=== PATIENT | female | born 2000 | race Caucasian/White ===

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

== ENCOUNTER 2021-02-11 17:07 | Emergency (ER) | payer SELFPAY ==
[~2021-02-11] VITALS: Ht 160 cm; Wt 56.0 kg
[~2021-02-11 17:07] MED LIST changes: -VALA1000 PO; +VALA10007 PO
--- NOTE | 2021-02-11 17:20 | ED General ---
General Chief Complaint: General Problems/Pain Stated Complaint: HGB LOW Nursing Triage Note: PT STATES HEMAGLOBIN 6.5 AT [facility], WAS SENT HERE FOR ANEMIA. Nursing Sepsis Screen: No Definite Risk Source of Information: Patient Exam Limitations: No Limitations History of Present Illness Date Seen by Provider: Feb 11, 2021 Time Seen by Provider: 17:18 Initial Comments To ER by private vehicle with reports of anemia. Patient has been feeling very fatigued and rundown for "a long time". She has a history of iron deficiency anemia and was formerly on iron infusions back in 2018. Hemoglobin as low as 4.4 at that time. She had a consult with hematology here during admission. She then had a rise in her hemoglobin up to about 15 and quit taking the iron infusions. She cannot take oral iron therapy because of the nausea that it causes she states. She saw [facility] about 3 weeks ago and had a fingerstick hemoglobin of 10 and a repeat today of 6.8. She does not have any periods secondary to Nexplanon. She states she really does not eat much of anything because of nausea which is almost constant for her. Timing/Duration: 1-2 Days Severity: Moderate Associated Systoms: Denies Symptoms Allergies and Home Medications Allergies Coded Allergies: No Known Drug Allergies (Unverified , 09/17/12) Home Medications Ferrous Sulfate 325 Mg Tablet, 1 TAB PO BID WITH MEALS Prescribed by: GENTRY PASTOR on 04/27/18 1013 Ondansetron 8 Mg Tab.rapdis, 1 TAB PO Q8H Prescribed by: GENTRY PASTOR on 04/27/18 1013 Patient Home Medication List Home Medication List Reviewed: Yes Review of Systems Review of Systems Constitutional: see HPI, malaise, weakness EENTM: see HPI Respiratory: no symptoms reported Cardiovascular: no symptoms reported Genitourinary: no symptoms reported Musculoskeletal: no symptoms reported Skin: no symptoms reported Psychiatric/Neurological: No Symptoms Reported Hematologic/Lymphatic: No Symptoms Reported Past Eoiwtnz-Xiiaps-Igrttx Hx Patient Social History 2nd Hand Smoke Exposure: Yes Recent Infectious Disease Expo: No Recent Hopitalizations: No Immunizations Up To Date Tetanus Booster (TDap): Less than 5yrs PED Vaccines UTD: Yes Date of Pneumonia Vaccine: Apr 25, 2001 Seasonal Allergies Seasonal Allergies: No Past Medical History Surgeries: Yes Ear Surgery Respiratory: No Cardiac: No Neurological: No 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 0.0oz. [id number]; 21.00 BMI Method:Stated General Appearance: No Apparent Distress, WD/WN, Other (Alert and oriented no distress. Heart rate 101, blood pressure 133/88.) Eyes: Bilateral Eye Normal Inspection, Bilateral Eye PERRL, Bilateral Eye EOMI HEENT: PERRL/EOMI, TMs Normal Respiratory: Normal Breath Sounds, No Accessory Muscle Use, No Respiratory Distress Cardiovascular: Regular Rate, Rhythm, Normal Peripheral Pulses Gastrointestinal: Normal Bowel Sounds, Non Tender, Soft Extremity: Normal Capillary Refill, Normal Inspection Neurologic/Psychiatric: Alert, Oriented x3 Skin: Normal Color, Warm/Dry Progress/Results/Core Measures Suspected Sepsis Recent Fever Within 48 Hours: No Infection Criteria Present: None New/Unexplained Altered Menta: No Sepsis Screen: No Definite Risk SIRS Temperature: Pulse: 101 Respiratory Rate: 18 Laboratory Tests 02/11/21 17:20: White Blood Count 7.8 Blood Pressure 136 /83 Mean: 100 Laboratory Tests 02/11/21 17:20: Creatinine 0.83, Platelet Count 331, Total Bilirubin 0.8 Results/Orders Lab Results Laboratory Tests Test 02/11/21 17:20 Range/Units White Blood Count 7.8 4.3-11.0 10^3/uL Red Blood Count 3.54 L 3.80-5.11 10^6/uL Hemoglobin 7.0 L 11.5-16.0 g/dL Hematocrit 27 L 35-52 % Mean Corpuscular Volume 75 L 80-99 fL Mean Corpuscular Hemoglobin 20 L 25-34 pg Mean Corpuscular Hemoglobin Concent 26 L 32-36 g/dL Red Cell Distribution Width 17.6 H 10.0-14.5 % Platelet Count 331 130-400 10^3/uL Mean Platelet Volume 9.5 9.0-12.2 fL Immature Granulocyte % (Auto) 0 % Neutrophils (%) (Auto) 42 42-75 % Lymphocytes (%) (Auto) 51 H 12-44 % Monocytes (%) (Auto) 7 0-12 % Eosinophils (%) (Auto) 0 0-10 % Basophils (%) (Auto) 1 0-10 % Neutrophils # (Auto) 3.3 1.8-7.8 10^3/uL Lymphocytes # (Auto) 4.0 1.0-4.0 10^3/uL Monocytes # (Auto) 0.5 0.0-1.0 10^3/uL Eosinophils # (Auto) 0.0 0.0-0.3 10^3/uL Basophils # (Auto) 0.1 0.0-0.1 10^3/uL Immature Granulocyte # (Auto) 0.0 0.0-0.1 10^3/uL Percent Immature Platelet Fraction 2.9 0.0-7.6 % Absolute Reticulocyte Count 66 24-90 10e9/uL Percent Reticulocyte Count 1.87 0.50-2.40 % Sodium Level 140 135-145 MMOL/L Potassium Level 4.1 3.6-5.0 MMOL/L Chloride Level 107 98-107 MMOL/L Carbon Dioxide Level 21 21-32 MMOL/L Anion Gap 12 5-14 MMOL/L Blood Urea Nitrogen 10 7-18 MG/DL Creatinine 0.83 0.60-1.30 MG/DL Estimat Glomerular Filtration Rate > 60 BUN/Creatinine Ratio 12 Glucose Level 99 70-105 MG/DL Calcium Level 9.1 8.5-10.1 MG/DL Corrected Calcium 8.8 8.5-10.1 MG/DL Total Bilirubin 0.8 0.1-1.0 MG/DL Aspartate Amino Transf (AST/SGOT) 13 5-34 U/L Alanine Aminotransferase (ALT/SGPT) 13 0-55 U/L Alkaline Phosphatase 50 40-136 U/L Total Protein 7.4 6.4-8.2 GM/DL Albumin 4.4 3.2-4.5 GM/DL My Orders Orders - MARISSA GRIGGS APRN Iron Tibc %Sat & Ferritin (02/11/21 17:15) Anemia Analyzer Hem Tests (02/11/21 17:15) Cbc With Automated Diff (02/11/21 17:15) Comprehensive Metabolic Panel (02/11/21 17:15) Ed Iv/Invasive Line Start (02/11/21 17:15) Red Cells Leukocytes Reduced (02/11/21 17:15) Anemia Analyzer Pathology (02/11/21 17:15) Cbc And Manual Diff (02/11/21 17:15) Immature Platelet Fraction (02/11/21 17:15) Reticulocyte Count (02/11/21 17:15) Type And Screen (02/11/21 17:15) Vital Signs/I&O 02/11/21 17:13 Temp 36.9 Pulse 101 Resp 18 B/P (MAP) 136/83 (100) Pulse Ox 100 O2 Delivery Room Air Capillary Refill : Less Than 3 Seconds Blood Pressure Mean: 100 Departure Communication (Admissions) [id number] spoke with Dr. Mortensen, we will give her 1 unit of packed red cells here then discharged. She will have the [facility] call her later this week for an appointment time next week to set up further evaluation and likely iron infusions. Impression Primary Impression: Microcytic hypochromic anemia Disposition: HOME, SELF-CARE Condition: Improved Departure-Patient Inst. Decision time for Depature: 17:57 Referrals: [facility] (PCP) Primary Care Physician ACE KERR APRN (Family) Primary Care Physician Patient Instructions: Anemia, Possibly From Low Iron, Adult ED, Good Food Sources of Iron Add. Discharge Instructions: 1. [facility] will call you later this week for an appointment time next week to recheck hemoglobin and this will likely result in them scheduling you for iron infusions. All discharge instructions reviewed with patient and/or family. Voiced un derstanding. Copy Copies To 1: MARA LOVE PETER J APRN Feb 11, 2021 17:20
[2021-02-11 17:28] LABS: ABSOLUTE RETIC # 66 10e9/uL (24-90); BASOPHILS # (AUTO) 0.1 10^3/uL (0.0-0.1); BASOPHILS % (AUTO) 1 % (0-10); EOSINOPHILS % (AUTO) 0 % (0-10); HEMATOCRIT 27 % (35-52); LYMPHOCYTES % (AUTO) 51 % (12-44); MEAN CORPUSCULAR HEMOGLOBIN 20 pg (25-34); MEAN CORPUSCULAR HGB CONC 26 g/dL (32-36); MEAN CORPUSCULAR VOLUME 75 fL (80-99); MEAN PLATELET VOLUME 9.5 fL (9.0-12.2); MONOCYTES # (AUTO) 0.5 10^3/uL (0.0-1.0); MONOCYTES % (AUTO) 7 % (0-12); NEUTROPHILS # (AUTO) 3.3 10^3/uL (1.8-7.8); NEUTROPHILS % (AUTO) 42 % (42-75); PLATELET COUNT 331 10^3/uL (130-400); RETICULOCYTE % 1.87 % (0.50-2.40); WHITE BLOOD COUNT 7.8 10^3/uL (4.3-11.0)
[2021-02-11 17:43] LABS: ALBUMIN 4.4 GM/DL (3.2-4.5); CHLORIDE 107 MMOL/L (98-107); POTASSIUM 4.1 MMOL/L (3.6-5.0); SODIUM 140 MMOL/L (135-145)
[2021-02-11 17:44] LABS: CALCIUM 9.1 MG/DL (8.5-10.1)
[2021-02-11 17:45] LABS: GLUCOSE 99 MG/DL (70-105)
[2021-02-11 17:46] LABS: TOTAL PROTEIN 7.4 GM/DL (6.4-8.2)
[2021-02-11 17:47] LABS: BILIRUBIN,TOTAL 0.8 MG/DL (0.1-1.0); CARBON DIOXIDE 21 MMOL/L (21-32)
[2021-02-11 17:49] LABS: ALKALINE PHOSPHATASE 50 U/L (40-136); CREATININE SERUM 0.83 MG/DL (0.60-1.30); GFR ESTIMATED > 60
[2021-02-11 17:50] LABS: BUN/CREATININE RATIO 12
[2021-02-11 17:52] LABS: ALANINE AMINOTRANSFERASE 13 U/L (0-55)
[2021-02-11] MEDS ORDERED: NS (IVPB) 250 ML IV ONE (18:00)
[2021-02-11 18:11] LABS: EOSINOPHILS % (MANUAL) 1 %; HYPOCHROMASIA MARKED; LYMPHOCYTES % (MANUAL) 38 %; MONOCYTES % (MANUAL) 9 %; NEUTROPHILS % (MANUAL) 52 %
[2021-02-11 18:12] LABS: ANISOCYTOSIS SLIGHT
[2021-02-11 18:27] VITALS: BP 115/62
[2021-02-11 18:42] VITALS: BP 113/56
[2021-02-11 19:55] VITALS: BP 112/69
== END 2021-02-11 20:00 | disposition home or self-care (01) ==
LOC: EDUNIT# 17:07 → ER 17:09
DX: D50.8 Other iron deficiency anemias (principal); Z77.22 Contact with and (suspected) exposure to environmental tobacco smoke (acute) (chronic)
CPT/HCPCS: 36430; 80053; 82728; 83540; 83550; 85007; 85027; 85045; 85055; 86850; 86900; 86901; 86920; 99285; P9016; 36415

== ENCOUNTER 2021-04-01 05:31 | Outpatient (RCR) | payer OTHER ==
[~2021-04-01] VITALS: Ht 160 cm; Wt 57.2 kg
[~2021-04-01 05:31] MED LIST changes: +ACET325T49 PO
== END 2021-04-01 08:48 | disposition home or self-care (01) ==
LOC: PREOP 05:31
PROVIDERS: ATTEND Surgery
DX: Z01.812 Encounter for preprocedural laboratory examination (principal); D64.9 Anemia, unspecified; K92.1 Melena; Z20.822 Contact with and (suspected) exposure to COVID-19
CPT/HCPCS: 87635

== ENCOUNTER 2021-04-02 13:02 | Day surgery (SDC) | payer OTHER ==
[~2021-04-02] VITALS: Ht 160 cm; Wt 57.2 kg
[2021-04-02] VITALS (10 sets, daily range): BP systolic 103–132; BP diastolic 59–91
[2021-04-02] MEDS ORDERED: LACTATED RINGERS 1,000 ML IV ONE (13:06)
[2021-04-02] MEDS ORDERED: LACTATED RINGERS 1,000 ML IV STA (13:17)
[2021-04-02] MEDS ORDERED: HURRICAINE EXT TUBE (BENZOCAINE) XX PRN (13:30)
--- NOTE | 2021-04-02 15:20 | Progress Note-Pre Operative ---
Pre-Operative Progress Note H&P Reviewed The H&P was reviewed, patient examined and no changes noted. Time Seen by Provider: 15:19 Date H&P Reviewed: Apr 02, 2021 Time H&P Reviewed: 15:20 Pre-Operative Diagnosis: Melena, epigastric pain, anemia YOVANI NORTON DO Apr 02, 2021 15:20
[2021-04-02] MEDS ORDERED: MIDAZOLAM 2 MG/2 ML (VERSED) VIAL ONE (16:42)
[2021-04-02] MEDS ORDERED: PROPOFOL INJECTION 50 ML IV ONE (16:42)
[2021-04-02] MEDS ORDERED: proPOfol 200 MG/20 ML (DIPRIVAN) VIAL IV ONE (16:56)
--- NOTE | 2021-04-02 17:26 | Progress Note-Post Operative ---
Post-Operative Progess Note Surgeon (s)/Radio Frequency Technician (s) Surgeon YOVANI NORTON DO Radio Frequency Technician: none Pre-Operative Diagnosis Melena, epigastric pain, anemia Post-Operative Diagnosis Gastritis Hiatal hernia Diverticula rectal polyp colitis int hemorrhoids gluteal mass Procedure & Operative Findings Date of Procedure 04/02/21 Procedure Performed/Findings PROCEDURE NOTE: After informed consent was obtained, the patient was brought to the endoscopy suite, placed in bed in left lateral decubitus position. She was administered IV sedation by the SALES AND TRAINING SPECIALIST who then monitored her vitals the entire time, heart rate, blood pressure and pulse ox, started with the EGD, placed the scope down the mouth through the esophagus into the stomach, noticed very mild Gastritis and took a picture of the antrum, pushed into the duodenum. Duodenum looked normal. Pulled back and did a biopsy of the antrum and then retroflexed the scope. She had a small hiatal hernia, pulled the scope into the GE junction, did a biopsy here and then pushed the scope back into the stomach and suctioned all the air out, then pulled the scope up the esophagus and out the mouth. Switched camera, switched gloves, went down below, started the colonoscopy. Pushed all the way to the cecum about 150 cm in, took a picture of the appendiceal orifice and noted the ileo-cecal valve. Able to get into the terminal ileum and then did a cold biopsy here. Then slowly withdrew the scope insufflating to look circumferentially at the gresham looking at the cecum, up the ascending colon. In the ascending colon I saw a diverticula and took a picture of it. Then continued up the ascending colon to the hepatic flexure, down the transverse colon, to the splenic flexure, into the descending colon down into the sigmoid and finally into the rectum. In the sigmoid/rectal area it looked a little red (most likely prep artifact) and did a biopsy here. Then noted a polyp in the rectal vault and did a cold biopsy of this as well as took a picture. As I withdrew the scope I saw some minimal internal hemorrhoids and took a picture. Then removed the scope and on the gluteal cheek noticed a mass/nevus and took a picture of this. The patient tolerated the procedure. She was recovered in endoscopy suite. Anesthesia Type IV sedation by SALES AND TRAINING SPECIALIST Estimated Blood Loss Estimated blood loss (mL): scant Specimens/Packing Specimens Removed antral bx GE jxn bx TI bx rectal bx Rectal polyp YOVANI NORTON DO Apr 02, 2021 17:26
--- NOTE | 2021-04-02 17:28 | Endoscopy Discharge Instruct ---
Endo Procedure/Findings Findings 1.: Gastritis 2.: Hiatal Hernia 3.: Polyp, Diverticulosis 4.: Internal Hemorrhoids Discharge Instructions - Activity: You might feel a little sleepy until tomorrow. This is due to the medicine you received to relax you. Until tomorrow, you should: NOT drive a car, operate machinery or power tools. NOT drink any alcoholic beverages. NOT make any important decisions or sign importortant papers. Do not return to work until tomorrow, unless otherwise instructed. Resume previous activities tomorrow. Diet: Start by taking liquids. If you tolerate liquids, advance to solid food. 1.: Colonscopy in 5 years 2.: EGD in 3 years Notify Physician - If you experience excessive bleeding, unusual abdominal pain, fever, or chest pain, contact your doctor immediately. YOVANI NORTON DO Apr 02, 2021 17:28
--- NOTE | 2021-04-02 20:01 | Anesthesia-General Post-Op ---
MAC Patient Condition Mental Status/LOC: Same as Preop Cardiovascular: Satisfactory Nausea/Vomiting: Absent Respiratory: Satisfactory Pain: Controlled Complications: Absent Post Op Complications Complications None Follow Up Care/Instructions Patient Instructions None needed. Anesthesiology Discharge Order Discharge Order Patient is doing well, no complaints, stable vital signs, no apparent adverse anesthesia problems. No complications reported per nursing. JONES JONES CRNA Apr 02, 2021 20:01
== END 2021-04-02 18:20 | disposition home or self-care (01) ==
LOC: ENDO 13:02
PROVIDERS: ATTEND Surgery
DX: K29.50 Unspecified chronic gastritis without bleeding (principal); K62.1 Rectal polyp; B96.81 Helicobacter pylori [H. pylori] as the cause of diseases classified elsewhere; K64.8 Other hemorrhoids; K57.30 Diverticulosis of large intestine without perforation or abscess without bleeding; K52.9 Noninfective gastroenteritis and colitis, unspecified; K44.9 Diaphragmatic hernia without obstruction or gangrene; R63.4 Abnormal weight loss; D50.9 Iron deficiency anemia, unspecified; I10 Essential (primary) hypertension; Z79.899 Other long term (current) drug therapy; Z20.822 Contact with and (suspected) exposure to COVID-19; Z83.3 Family history of diabetes mellitus
CPT/HCPCS: 84703

== ENCOUNTER → 2021-04-02 | Outpatient (CLI) | payer OTHER ==
--- NOTE | 2021-04-02 08:33 | Diagnostic Imaging Report ---
PROCEDURE: US Gallbladder. TECHNIQUE: Multiple real-time grayscale images were obtained over the right upper quadrant in various projections. INDICATION: Epigastric pain Liver, gallbladder and bile ducts are normal. The pancreas and right kidney are normal. No abnormality of the aorta or IVC is seen. There is no ascites. IMPRESSION: No abnormality is seen. Dictated by: Dictated on workstation # [id number]
== END ==
LOC: RAD 06:48
PROVIDERS: ATTEND Surgery
DX: R10.13 Epigastric pain (principal)
CPT/HCPCS: 76705

== ENCOUNTER → 2021-04-17 | Outpatient (CLI) | payer OTHER ==
[~2021-04-17] MED LIST changes: +CATHETER FLUSH 10 ML SYR IV PRN
--- NOTE | 2021-04-17 15:08 | Diagnostic Imaging Report ---
INDICATION: Epigastric pain. EXAMINATION: Patient was administered 4.5 mCi technetium 99m Choletec intravenously and imaging over the abdomen was performed. At 75 minutes, patient ingested 8 ounces of Ensure and gallbladder ejection fraction was calculated. There is homogeneous uptake of activity by the liver. There is prompt excretion of activity into the common duct with passage into the small bowel. There was filling of the gallbladder. Gallbladder ejection fraction is slightly low at 28%. Normal values are 35% or greater. IMPRESSION: 1. Patent cystic duct and common bile duct. 2. Slightly low gallbladder ejection fraction of 28%. Dictated by: Dictated on workstation # [id number]
== END ==
LOC: CARD 08:00
PROVIDERS: ATTEND Surgery
DX: R10.13 Epigastric pain (principal)
CPT/HCPCS: 78227; A9537

== ENCOUNTER 2021-04-21 09:33 | Outpatient (RCR) | payer OTHER ==
[2021-03-10 14:28] LABS: EOSINOPHILS # (AUTO) 0.1 10^3/uL (0.0-0.3); EOSINOPHILS % (AUTO) 1 % (0-10); HEMOGLOBIN 7.6 g/dL (11.5-16.0)
[2021-03-10 14:31] LABS: ABSOLUTE RETIC # 58 10e9/uL (24-90); BASOPHILS # (AUTO) 0.1 10^3/uL (0.0-0.1); BASOPHILS % (AUTO) 1 % (0-10); HEMATOCRIT 29 % (35-52); LYMPHOCYTES % (AUTO) 22 % (12-44); MEAN CORPUSCULAR HEMOGLOBIN 20 pg (25-34); MEAN CORPUSCULAR HGB CONC 26 g/dL (32-36); MEAN CORPUSCULAR VOLUME 77 fL (80-99); MEAN PLATELET VOLUME 9.8 fL (9.0-12.2); MONOCYTES # (AUTO) 0.7 10^3/uL (0.0-1.0); MONOCYTES % (AUTO) 7 % (0-12); NEUTROPHILS # (AUTO) 6.3 10^3/uL (1.8-7.8); NEUTROPHILS % (AUTO) 69 % (42-75); PLATELET COUNT 539 10^3/uL (130-400); RETICULOCYTE % 1.53 % (0.50-2.40); WHITE BLOOD COUNT 9.2 10^3/uL (4.3-11.0)
[2021-03-10 14:55] LABS: ALANINE AMINOTRANSFERASE 10 U/L (0-55); ALBUMIN 4.2 GM/DL (3.2-4.5); ALKALINE PHOSPHATASE 44 U/L (40-136); BILIRUBIN,TOTAL 0.5 MG/DL (0.1-1.0); BUN/CREATININE RATIO 12; CALCIUM 8.6 MG/DL (8.5-10.1); CARBON DIOXIDE 27 MMOL/L (21-32); CHLORIDE 105 MMOL/L (98-107); CREATININE SERUM 0.77 MG/DL (0.60-1.30); GFR ESTIMATED > 60; GLUCOSE 89 MG/DL (70-105); POTASSIUM 3.9 MMOL/L (3.6-5.0); SODIUM 138 MMOL/L (135-145); TOTAL PROTEIN 6.7 GM/DL (6.4-8.2)
[~2021-04-21 09:33] MED LIST changes: -CATHETER FLUSH 10 ML SYR IV PRN; +FERRIC CARBOXYMALTOSE (CANCER) 750 MG in NS (IVPB) CANCER CENTER 250 ML IV SCH
[2021-04-21 09:45] LABS: BASOPHILS % (AUTO) 1 % (0-10); EOSINOPHILS % (AUTO) 1 % (0-10); HEMATOCRIT 43 % (35-52); HEMOGLOBIN 12.9 g/dL (11.5-16.0); LYMPHOCYTES # (AUTO) 1.7 10^3/uL (1.0-4.0); LYMPHOCYTES % (AUTO) 36 % (12-44); MEAN CORPUSCULAR HEMOGLOBIN 26 pg (25-34); MEAN CORPUSCULAR HGB CONC 30 g/dL (32-36); MEAN CORPUSCULAR VOLUME 88 fL (80-99); MEAN PLATELET VOLUME 9.3 fL (9.0-12.2); MONOCYTES # (AUTO) 0.3 10^3/uL (0.0-1.0); MONOCYTES % (AUTO) 6 % (0-12); NEUTROPHILS # (AUTO) 2.7 10^3/uL (1.8-7.8); NEUTROPHILS % (AUTO) 57 % (42-75); PLATELET COUNT 205 10^3/uL (130-400); WHITE BLOOD COUNT 4.8 10^3/uL (4.3-11.0)
[2021-05-14] MEDS ORDERED: ACHD5005 PO (09:26)
== END 2021-05-16 10:21 | disposition home or self-care (01) ==
LOC: ONC 09:33
PROVIDERS: ATTEND Internal Medicine Hematology & Oncology
DX: D50.9 Iron deficiency anemia, unspecified (principal)
CPT/HCPCS: 80053; 82607; 82746; 83010; 83520; 83615; 85025; 85045; 86880; G0463; 82728; 83540; 83550; 88305; 96365; 99213; 99214

== ENCOUNTER 2021-05-07 06:05 | Outpatient (CLI) | payer OTHER ==
[~2021-05-07] VITALS: Ht 160 cm; Wt 57.2 kg
[~2021-05-07 06:05] MED LIST changes: -FERRIC CARBOXYMALTOSE (CANCER) 750 MG in NS (IVPB) CANCER CENTER 250 ML IV SCH
== END 2021-05-07 09:05 | disposition home or self-care (01) ==
LOC: PREOP 06:05
PROVIDERS: ATTEND Surgery
DX: Z01.818 Encounter for other preprocedural examination (principal)

== ENCOUNTER 2021-05-14 06:57 | Day surgery (SDC) | payer OTHER ==
[~2021-05-14] VITALS: Ht 160 cm; Wt 57.2 kg
[2021-05-14] VITALS (12 sets, daily range): BP systolic 106–139; BP diastolic 67–84
[2021-05-14] MEDS ORDERED: LIDOCAINE/EPI 1%-1:100,000 (XYLOCAINE) 20ML ONE (07:21)
[2021-05-14 07:42] LABS: HEMATOCRIT 41 % (35-52); HEMOGLOBIN 12.7 g/dL (11.5-16.0); MEAN CORPUSCULAR HEMOGLOBIN 28 pg (25-34); MEAN CORPUSCULAR HGB CONC 31 g/dL (32-36); MEAN CORPUSCULAR VOLUME 91 fL (80-99); MEAN PLATELET VOLUME 9.1 fL (9.0-12.2); PLATELET COUNT 228 10^3/uL (130-400); WHITE BLOOD COUNT 5.4 10^3/uL (4.3-11.0)
[2021-05-14] MEDS ORDERED: INDOCYANINE GREEN 25 MG (ICG) VIAL ONE (07:43)
[2021-05-14] MEDS ORDERED: LIDOCAINE PF 2% 5 ML (XYLOCAINE) VIAL ONE (07:44)
[2021-05-14] MEDS ORDERED: fentaNYL INJ 100 MCG/2 ML AMP ONE (07:44)
[2021-05-14] MEDS ORDERED: MIDAZOLAM 2 MG/2 ML (VERSED) VIAL ONE (07:44)
[2021-05-14] MEDS ORDERED: proPOfol 200 MG/20 ML (DIPRIVAN) VIAL IV ONE (07:44)
[2021-05-14] MEDS ORDERED: NEOSTIGMINE 3 MG/3 ML VIAL ONE (07:44)
[2021-05-14] MEDS ORDERED: ONDANSETRON 4 MG/2 ML (SDV) Z0FRAN ONE (07:44)
[2021-05-14] MEDS ORDERED: GLYCOPYRROLATE 0.2 MG/ML (ROBINUL) 2 ML VIAL ONE (07:44)
[2021-05-14] MEDS ORDERED: ROCURONIUM 10 MG/ML 5 ML SYRINGE IV ONE (07:44)
[2021-05-14] MEDS ORDERED: INDOCYANINE GREEN 25 MG (ICG) VIAL IV ONE (07:45)
[2021-05-14] MEDS ORDERED: LACTATED RINGERS 1,000 ML IV PRN (07:45)
[2021-05-14] MEDS ORDERED: ceFAZolin 2 GM IV Premixed 50 ML IV ONE (07:45)
--- NOTE | 2021-05-14 08:04 | Progress Note-Pre Operative ---
Pre-Operative Progress Note H&P Reviewed The H&P was reviewed, patient examined and no changes noted. Time Seen by Provider: 07:59 Date H&P Reviewed: May 14, 2021 Time H&P Reviewed: 07:59 Pre-Operative Diagnosis: Biliary Dyskinesia YOVANI NORTON DO May 14, 2021 08:04
[2021-05-14] MEDS ORDERED: HYDROmorphone 2 MG/ML VIAL (DILAUDID) ONE (08:50)
[2021-05-14] MEDS ORDERED: SEVOFLURANE (ULTANE) 15 ML INHAL SOLN ONE (09:04)
--- NOTE | 2021-05-14 09:25 | Progress Note-Post Operative ---
Post-Operative Progess Note Surgeon (s)/Housekeeping Department Worker (s) Surgeon YOVANI NORTON DO Housekeeping Department Worker: JOSEF Fernandez Pre-Operative Diagnosis Biliary Dyskinesia Post-Operative Diagnosis same Procedure & Operative Findings Date of Procedure 05/14/21 Procedure Performed/Findings PROCEDURE: Laparoscopic cholecystectomy with Robotic assistance and ICG firefly intraoperative cholangiogram. COMPLICATIONS: None. PROCEDURE: The patient was taken to the operating suite and was prepped and draped in sterile fashion. A surgical pause was performed. Just inferior to the umbilicus, a 12 mm incision was made. Dissection was taken down to the fascia, which was then scored and grasped with a Jones and the abdomen was then entered. A 0 Vicryl suture was placed in a [id number] fashion and a Correa trocar was placed and secured. Pneumoperitoneum was achieved. An 8mm trochar place about 8cm directly lateral to the umbilicus in the right upper quadrant and then another 8cm to the left and one final one in the left upper outer quadrant. The Robot was then docked to the ports and all instruments placed. The gallbladder was then grasped and elevated; noted to have some adhesions, which usually indicate previous gallbladder attacks. These were taken down with the bovie catuery. The cystic duct, and cystic artery were then dissected out. ICG Firefly cholangiogram was used to visualize the cystic duct going right into the common duct. Gallbladder, liver, ducts and stomach were green; indicating no blockage. Clip was placed on the distal portion of the cystic duct and then two more placed proximally. Next two clips were placed on the cystic artery and the duct was then transected; as well as, the cystic artery was finally transected. Hook cautery was used to dissect the gallbladder from the gallbladder fossa achieving hemostasis. The gallbladder was placed in an Endobag and removed through the 12 mm trocar site. The abdomen was then reinspected. Copious amounts of irrigation were used to irrigate the abdomen and there were no signs of active bleeding. Hemostasis had been achieved. The 12 mm fascial defect was then closed with 0 Vicryl suture that had been placed in a [id number] fashion. The abdomen was then desufflated, the trocars were removed. The abdomen was then washed and dried. The skin was then closed using 4-0 Monocryl in a subcuticular fashion. The abdomen was washed and dried and Skin Affix was place over incisions. Patient tolerated the procedure well without any complications and was taken to the recovery room in stable condition. Anesthesia Type GET Estimated Blood Loss Estimated blood loss (mL): scant Specimens/Packing Specimens Removed GB and contents YOVANI NORTON DO May 14, 2021 09:25
[2021-05-14] MEDS ORDERED: ACHD5005 PO (09:26)
--- NOTE | 2021-05-14 09:28 | Discharge Inst-Surgical ---
Discharge Inst-Surgical Depart Medication/Instructions New, Converted or Re-Newed RX: Transmitted to Pharmacy Patient Instructions Follow up Appt: Make appointment for 1 week. [phone] Instructions: No lifting greater than 20 pounds. No strenuous activity. May shower in 24 hours, no tub bath or soaking. Use incentive spirometer at home as directed. No Smoking Skin/Wound Care: May remove bandages in am. You need to leave the Dermabond on incision it will fall off on it's own. Symptoms to Report: Appetite Changes, Extremity Discoloration, Numbness/Tingling, Swelling Increased, Bleeding Excessive, Eyesight Changes, Pain Increased, Urine Color Change, Constipation(Persistent), Fever over 101 degree F, Pain/Pressure in chest, Urinating Difficulty, Cough Up/Vomit Blood, Heart Beat Irreg/Pounding, Pain/Pressure in jaw, Cramps in feet or legs, Lightheadedness, Pain/Pressure in shoulder, Diarrhea(Persistent), Memory Changes Suddenly, Questions/Concerns, Weight gain consecutive days, Dizziness/Fainting, Nausea/Vomiting, Shortness of Breath, Weight gain over 2 pounds If questions or concerns contact your physician Or seek help at emergency department. Activity Activity as Tolerated: Yes Activity Instructions: Avoid Stress to Incision Driving Instructions: No Driving/Refer to Dr. Mendoza Discharge Diet: Avoid Fatty Foods, Low Fat/Low Cholesterol If Any Problems/Questions/Issu: Contact Your Physician, Go to Emergency Room Skin/Wound Care Infection Signs and Symptoms: Increased Redness, Foul Odor of Wound, Increased Drainage, Skin Itchy or Has a Rash, Increased Swelling, Temperature Above 101 F Wound Care Comment: Heating pad to shoulder or neck for pain tonight Bathing Instructions: Shower Stitches/Eugenia/Dermabond Dis: Dermabond Ice Pack: Ice On and Off Site YOVANI NORTON DO May 14, 2021 09:28
[2021-05-14] MEDS ORDERED: morphine INJ 10 MG/ML 1ML (SYR OR VIAL) IVP ONE (09:30)
[2021-05-14] MEDS ORDERED: HYDROmorphone 2 MG/ML VIAL (DILAUDID) IV ONE (09:30)
[2021-05-14] MEDS ORDERED: ONDANSETRON 4 MG/2 ML (SDV) Z0FRAN IVP PRN (09:30)
[2021-05-14] MEDS ORDERED: HYDROcodone/APAP 5 MG/325 MG (LORTAB) TAB PO ONE (10:45)
[2021-05-14] MEDS ORDERED: HYDROcodone/APAP 5 MG/325 MG (LORTAB) TAB ONE (10:50)
--- NOTE | 2021-05-14 14:34 | Anesthesia-General Post-Op ---
General Patient Condition Mental Status/LOC: Same as Preop Cardiovascular: Satisfactory Nausea/Vomiting: Absent Respiratory: Satisfactory Pain: Controlled Complications: Absent Post Op Complications Complications None Follow Up Care/Instructions Patient Instructions None needed. Anesthesia/Patient Condition Patient Condition Patient was seen this morning after the procedure and she was doing well, no complaints, stable vital signs, no apparent adverse anesthesia problems. DANN ROSSI DO May 14, 2021 14:34
== END 2021-05-14 12:05 | disposition home or self-care (01) ==
LOC: SDC 06:57 → EEVIPCON 08:00 → SDC 12:05
PROVIDERS: ATTEND Surgery
DX: K81.1 Chronic cholecystitis (principal); K82.8 Other specified diseases of gallbladder; I10 Essential (primary) hypertension; A04.8 Other specified bacterial intestinal infections; D50.9 Iron deficiency anemia, unspecified; Z79.899 Other long term (current) drug therapy
CPT/HCPCS: 36415; 84703; 85027; 87081; 88304

== ENCOUNTER → 2021-08-11 | Outpatient (CLI) | payer OTHER ==
[~2021-08-11] MED LIST changes: +ACHD5005 PO
[2021-08-11 10:59] LABS: BASOPHILS % (AUTO) 0 % (0-10); EOSINOPHILS % (AUTO) 1 % (0-10); HEMATOCRIT 47 % (35-52); HEMOGLOBIN 15.3 g/dL (11.5-16.0); LYMPHOCYTES # (AUTO) 1.8 10^3/uL (1.0-4.0); LYMPHOCYTES % (AUTO) 27 % (12-44); MEAN CORPUSCULAR HEMOGLOBIN 31 pg (25-34); MEAN CORPUSCULAR HGB CONC 33 g/dL (32-36); MEAN CORPUSCULAR VOLUME 96 fL (80-99); MONOCYTES # (AUTO) 0.3 10^3/uL (0.0-1.0); MONOCYTES % (AUTO) 5 % (0-12); NEUTROPHILS # (AUTO) 4.5 10^3/uL (1.8-7.8); NEUTROPHILS % (AUTO) 67 % (42-75); PLATELET COUNT 264 10^3/uL (130-400); WHITE BLOOD COUNT 6.7 10^3/uL (4.3-11.0)
== END ==
LOC: ONC 10:46
PROVIDERS: ATTEND Internal Medicine Hematology & Oncology
DX: D50.9 Iron deficiency anemia, unspecified (principal)
CPT/HCPCS: 82728; 83540; 83550; 85025

== ENCOUNTER → 2021-08-15 | Outpatient (CLI) | payer SELFPAY | LOC: ONC 11:01 | PROVIDERS: ATTEND Internal Medicine Hematology & Oncology | DX: D50.9 Iron deficiency anemia, unspecified (principal); I10 Essential (primary) hypertension | CPT/HCPCS: 99213 ==

== ENCOUNTER 2022-10-28 14:01 | Emergency (ER) | payer SELFPAY ==
[~2022-10-28] VITALS: Ht 157.5 cm; Wt 58.0 kg
--- NOTE | 2022-10-28 15:05 | ED Abdominal Pain ---
General Chief Complaint: OB < 20 WEEKS Stated Complaint: VAGINAL BLEEDING | 6 WEEKS Nursing Triage Note: PT AMB TO ED BY POV WITH C/O VAGINAL BLEEDING BEGINNING THIS MORNING. PT IS 6 WEEKS . LMP Sep. DENIES CRAMPING. PT'S FIRST . Source of Information: Patient Exam Limitations: No Limitations History of Present Illness Date Seen by Provider: Oct 28, 2022 Time Seen by Provider: 14:58 Initial Comments 21-year-old female presents with vaginal bleeding. States she is 6 weeks , last menstrual cycle was September 17. States she has normal menstrual cycles. Patient reports there was a moderate amount of blood, denies clots. Denies abdominal pain. Denies discharge. Denies fever/chills. Patient reports she has a history of anemia and occasionally has to get blood and iron trans fusions. States it has been a while since she had to have a transfusion. Patient currently only takes a . Allergies and Home Medications Allergies Coded Allergies: No Known Drug Allergies (Unverified , 09/17/12) Patient Home Medication List Home Medication List Reviewed: Yes Hydrocodone Bit/Acetaminophen (HYDROcodone/APAP 5 MG/325 MG TAB) 1 Tab Tab, 1 TAB PO Q8H PRN for PAIN-MODERATE (5-7) Prescribed by: YOVANI NORTON on 05/14/21 0965 Review of Systems Review of Systems Constitutional: no symptoms reported; No chills, No fever Respiratory: No Symptoms Reported Cardiovascular: No Symptoms Reported Gastrointestinal: Denies Abdominal Pain Genitourinary: Other (vaginal bleeding) Past Cuocsyk-Dxqvkz-Bwlddq Hx Patient Social History Tobacco Use?: No Use of E-Cig and/or Vaping dev: Yes E-Cig or Vaping type used: Nicotine Use of E-Cig and/or Vaping Bunny: Current Everyday User Substance use?: Yes Substance type: Marijuana Substance frequency: Daily Alcohol Use?: No Pt feels they are or have been: No Immunizations Up To Date Tetanus Booster (TDap): Less than 5yrs PED Vaccines UTD: Yes Influenza Vaccine Up-to-Date: No; Not Current Seasonal Allergies Seasonal Allergies: Yes Past Medical History Surgery/Hospitalization HX: ANEMIA SEMAJ Surgeries: Yes Ear Surgery Respiratory: No Currently Using CPAP: No Currently Using BIPAP: No Cardiac: No Neurological: No Last Menstrual Period: Sep 17, 2022 [employer]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 Genitourinary: No Gastrointestinal: No Hiatal Hernia Musculoskeletal: No Endocrine: No HEENT: No Cancer: No Psychosocial: No Integumentary: No Blood Disorders: Yes (History of severe anemia requiring transfusion) Adverse Reaction/Blood Tranf: No Family Medical History DAD HAS COPD Iron deficiency anemia Respiratory disorder 19 FATHER, Onset:40's - 50 No Pertinent Family Hx Physical Exam Vital Signs Vital Signs - First Documented 10/28/22 14:13 Temp 36.9 Pulse 100 Resp 16 B/P (MAP) 109/75 (86) Pulse Ox 98 O2 Delivery Room Air Capillary Refill : Less Than 3 Seconds Height/Weight/BMI Height: 5'3.00" Weight: 135lbs. 0.0oz. [id number]; 23.00 BMI Method:Stated General Appearance: WD/WN, no apparent distress Neck: supple, normal inspection Respiratory: lungs clear, normal breath sounds, no respiratory distress, no accessory muscle use Cardiovascular: regular rate, rhythm, no edema, no gallop, no JVD, no murmur Gastrointestinal: normal bowel sounds, non tender, soft, no organomegaly, no pulsatile mass Extremities: normal range of motion, normal inspection Pelvic: normal external exam, vaginal bleeding, other (closed os) Neurologic/Psychiatric: alert, normal mood/affect, oriented x 3 Skin: normal color, warm/dry Progress/Results/Core Measures Results/Orders Lab Results Laboratory Tests Test 10/28/22 14:50 10/28/22 15:06 Range/Units Urine Color YELLOW Urine Clarity CLEAR Urine pH 5.5 5-9 Urine Specific [place] >=1.030 1.016-1.022 Urine Protein 2+ H NEGATIVE Urine Glucose (UA) NEGATIVE NEGATIVE Urine Ketones TRACE H NEGATIVE Urine Nitrite NEGATIVE NEGATIVE Urine Bilirubin NEGATIVE NEGATIVE Urine Urobilinogen 1.0 < = 1.0 MG/DL Urine Leukocyte Esterase NEGATIVE NEGATIVE Urine RBC (Auto) 3+ H NEGATIVE Urine RBC TNTC H /HPF Urine WBC 2-5 /HPF Urine Squamous Epithelial Cells 5-10 /HPF Urine Crystals PRESENT H /LPF Urine Amorphous Sediment FEW KEO URATES H /LPF Urine Bacteria FEW H /HPF Urine Casts NONE /LPF Urine Mucus MODERATE H /LPF Urine Culture Indicated YES White Blood Count 9.6 4.3-11.0 10^3/uL Red Blood Count 4.68 3.80-5.11 10^6/uL Hemoglobin 14.7 11.5-16.0 g/dL Hematocrit 43 35-52 % Mean Corpuscular Volume 92 80-99 fL Mean Corpuscular Hemoglobin 31 25-34 pg Mean Corpuscular Hemoglobin Concent 34 32-36 g/dL Red Cell Distribution Width 12.1 10.0-14.5 % Platelet Count 263 130-400 10^3/uL Mean Platelet Volume 9.1 9.0-12.2 fL Immature Granulocyte % (Auto) 0 % Neutrophils (%) (Auto) 70 42-75 % Lymphocytes (%) (Auto) 24 12-44 % Monocytes (%) (Auto) 5 0-12 % Eosinophils (%) (Auto) 0 0-10 % Basophils (%) (Auto) 0 0-10 % Neutrophils # (Auto) 6.7 1.8-7.8 10^3/uL Lymphocytes # (Auto) 2.3 1.0-4.0 10^3/uL Monocytes # (Auto) 0.5 0.0-1.0 10^3/uL Eosinophils # (Auto) 0.0 0.0-0.3 10^3/uL Basophils # (Auto) 0.0 0.0-0.1 10^3/uL Immature Granulocyte # (Auto) 0.0 0.0-0.1 10^3/uL Sodium Level 136 135-145 MMOL/L Potassium Level 3.7 3.6-5.0 MMOL/L Chloride Level 108 H 98-107 MMOL/L Carbon Dioxide Level 22 21-32 MMOL/L Anion Gap 6 5-14 MMOL/L Blood Urea Nitrogen 8 7-18 MG/DL Creatinine 0.73 0.60-1.30 MG/DL Estimat Glomerular Filtration Rate 120 BUN/Creatinine Ratio 11 Glucose Level 94 70-105 MG/DL Calcium Level 8.8 8.5-10.1 MG/DL Corrected Calcium 8.7 8.5-10.1 MG/DL Total Bilirubin 1.2 H 0.1-1.0 MG/DL Aspartate Amino Transf (AST/SGOT) 14 5-34 U/L Alanine Aminotransferase (ALT/SGPT) 15 0-55 U/L Alkaline Phosphatase 41 40-136 U/L Total Protein 6.9 6.4-8.2 GM/DL Albumin 4.1 3.2-4.5 GM/DL Human Chorionic Gonadotropin, Quant 65056 H <5 MIU/ML My Orders Orders - RAMAKRISHNA ARIZA APRN Cbc With Automated Diff (10/28/22 14:57) Hcg,Quantitative (10/28/22 14:57) Ed Iv/Invasive Line Start (10/28/22 14:57) Comprehensive Metabolic Panel (10/28/22 14:57) Urinalysis (10/28/22 14:57) Us Ob<14 Wks Sngle W/Transvag (10/28/22 14:59) Urine Culture (10/28/22 14:50) Rho(D) Immune Globulin (Rhophylac) (10/28/22 17:00) Vital Signs/I&O 10/28/22 14:13 Temp 36.9 Pulse 100 Resp 16 B/P (MAP) 109/75 (86) Pulse Ox 98 O2 Delivery Room Air Blood Pressure Mean: 86 Progress Progress Note #1: Time: 15:00 Progress Note Patient seen and evaluated. Concern for threatened miscarriage or ectopic . CBC, CMP, UA, hCG ordered. Patient is blood type A-. Progress Note #2: Time: 16:46 Progress Note Pelvic exam performed. 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 Did not appreciate an open os. Blood noted in vaginal canal. Progress Note #3: Time: 16:55 Progress Note Discussed OB recommendations with patient. Patient instructed to be on bedrest for the next few days until she sees OB. Instructed to not have sexual intercourse, do not insert anything to the vagina. Patient instructed to call OB in the morning to get an appointment for tomorrow or Wednesday. RhoGAM ordered for patient due to type A- blood type. Diagnostic Imaging Diagonstic Imaging: Ultrasound Plain Films/CT/US/NM/MRI: other (OB <14 weeks) Comments Date of Exam:10/28/22 US OB<14 WKS SNGLE W/TRANSVAG INDICATION: Vaginal bleeding Transabdominal and transvaginal ultrasonography are performed. Intrauterine gestational sac is present with normal morphology. There is pole present with crown-rump length measuring 0.3 cm. Embryonic cardiac activity is present with a rate of 79 bpm. There is also an approximately 2.8 x 1.2 x 1.5 cm heterogeneous hypoechoic region to the right of midline in the uterus possibly representing hematoma. Right ovary is not well visualized. Left ovary is prominent and contains an approximately 2.1 x 2.3 x 1.8 cm hypoechoic structure possibly related to corpus luteum. This does have peripheral vascularity. No definite free fluid is seen. IMPRESSION: Intrauterine gestation with estimated age of 6 weeks. Sonographic EDC is 06/24/2023. There is a questionable meseret-gestational hematoma with complex structure in the left ovary having a nonspecific appearance. This could represent corpus luteum although clinical correlation and short-term ultrasound followup would be useful to document resolution and normal progression of . Dictated by: Dictated on workstation # [id number] Dict: 10/28/22 1601 Trans: 10/28/22 1630 CV [id number] Interpreted by: CARLA LR MD Electronically signed by: CARLA LR MD 10/28/22 1630 Departure Communication (Admissions) Time/Spoke to Consulting Phy: 16:53 Dr. Nixon Impression Primary Impression: Threatened in first trimester Disposition: 01 HOME, SELF-CARE Condition: Stable Departure-Patient Inst. Decision time for Depature: 17:00 Referrals: [facility] (PCP/Family) Primary Care Physician Patient Instructions: Threatened Miscarriage (DC) Add. Discharge Instructions: Discussed OB recommendations with patient. Instructed to be on bedrest for the next few days until she sees OB. Instructed to call OB first thing in the morning to get an appointment tomorrow or Wednesday. Instructed to have pelvic rest, no sex, nothing inserted into the vagina. Patient informed that she would get RhoGAM here while in the ER before leaving. All discharge instructions reviewed with patient and/or family. Voiced understanding. Work/School Note: Work Release Form Date Seen in the Emergency Department: Oct 28, 2022 Return to Work: Nov 04, 2022 Restrictions: Need Release from Doctor Other Restrictions Listed Below: May return to work after cleared by physician. Restrictions: No work until cleared by physician. RAMAKRISHNA ARIZA APRN Oct 28, 2022 15:05
[2022-10-28 15:09] LABS: CLARITY,URINE CLEAR; COLOR,URINE YELLOW; GLUCOSE, URINE (UA) NEGATIVE (NEGATIVE); KETONES,URINE TRACE (NEGATIVE); LEUKOCYTE ESTERASE ,URINE NEGATIVE (NEGATIVE); NITRITE,URINE NEGATIVE (NEGATIVE); PH,URINE 5.5 (5-9); PROTEIN,URINE 2+ (NEGATIVE)
[2022-10-28 15:14] LABS: BASOPHILS % (AUTO) 0 % (0-10); EOSINOPHILS % (AUTO) 0 % (0-10); HEMATOCRIT 43 % (35-52); HEMOGLOBIN 14.7 g/dL (11.5-16.0); LYMPHOCYTES # (AUTO) 2.3 10^3/uL (1.0-4.0); LYMPHOCYTES % (AUTO) 24 % (12-44); MEAN CORPUSCULAR HEMOGLOBIN 31 pg (25-34); MEAN CORPUSCULAR HGB CONC 34 g/dL (32-36); MEAN CORPUSCULAR VOLUME 92 fL (80-99); MEAN PLATELET VOLUME 9.1 fL (9.0-12.2); MONOCYTES # (AUTO) 0.5 10^3/uL (0.0-1.0); MONOCYTES % (AUTO) 5 % (0-12); NEUTROPHILS # (AUTO) 6.7 10^3/uL (1.8-7.8); NEUTROPHILS % (AUTO) 70 % (42-75); PLATELET COUNT 263 10^3/uL (130-400); WHITE BLOOD COUNT 9.6 10^3/uL (4.3-11.0)
[2022-10-28 15:24] LABS: ALBUMIN 4.1 GM/DL (3.2-4.5); POTASSIUM 3.7 MMOL/L (3.6-5.0)
[2022-10-28 15:26] LABS: CALCIUM 8.8 MG/DL (8.5-10.1)
[2022-10-28 15:26] LABS: BACTERIA,URINE FEW /HPF; BILIRUBIN,URINE NEGATIVE (NEGATIVE); RBC,URINE TNTC /HPF
[2022-10-28 15:27] LABS: AMORPHOUS SEDIMENT,UR FEW AMOR URATES /LPF
[2022-10-28 15:27] LABS: TOTAL PROTEIN 6.9 GM/DL (6.4-8.2)
[2022-10-28 15:29] LABS: BILIRUBIN,TOTAL 1.2 MG/DL (0.1-1.0)
[2022-10-28 15:30] LABS: CREATININE SERUM 0.73 MG/DL (0.60-1.30)
--- NOTE | 2022-10-28 16:07 | Diagnostic Imaging Report ---
INDICATION: Vaginal bleeding Transabdominal and transvaginal ultrasonography are performed. Intrauterine gestational sac is present with normal morphology. There is pole present with crown-rump length measuring 0.3 cm. Embryonic cardiac activity is present with a rate of 79 bpm. There is also an approximately 2.8 x 1.2 x 1.5 cm heterogeneous hypoechoic region to the right of midline in the uterus possibly representing hematoma. Right ovary is not well visualized. Left ovary is prominent and contains an approximately 2.1 x 2.3 x 1.8 cm hypoechoic structure possibly related to corpus luteum. This does have peripheral vascularity. No definite free fluid is seen. IMPRESSION: Intrauterine gestation with estimated age of 6 weeks. Sonographic EDC is 06/24/2023. There is a questionable meseret-gestational hematoma with complex structure in the left ovary having a nonspecific appearance. This could represent corpus luteum although clinical correlation and short-term ultrasound followup would be useful to document resolution and normal progression of . Dictated by: Dictated on workstation # [id number]
[2022-10-28] MEDS ORDERED: RHO(D) immune globulin 1,500 UNIT/2 ML (Rhogam/Rhophylac) IM/IV ONE ×2 (17:00→17:30)
[2022-10-28 18:18] VITALS: BP 123/79
== END 2022-10-28 18:18 | disposition home or self-care (01) ==
LOC: EDUNIT# 14:01 → ER 14:03
DX: O20.0 Threatened abortion (principal); O99.331 Smoking (tobacco) complicating pregnancy, first trimester; F17.290 Nicotine dependence, other tobacco product, uncomplicated; Z28.310 Unvaccinated for COVID-19; Z3A.01 Less than 8 weeks gestation of pregnancy
CPT/HCPCS: 36415; 76801; 76817; 80053; 81000; 84702; 85025; 87088; 96372

== ENCOUNTER 2022-10-29 14:05 | Emergency (ER) | payer MEDICAID | END 2022-10-29 14:30 | disposition left against medical advice (07) | LOC: EDUNIT# 14:05 → ER 14:06 | DX: O03.9 Complete or unspecified spontaneous abortion without complication (principal) ==

== ENCOUNTER 2022-12-10 05:34 | Day surgery (SDC) | payer MEDICAID ==
[2022-12-10] VITALS (8 sets, daily range): BP systolic 95–127; BP diastolic 54–79
[~2022-12-10] VITALS: Ht 157.5 cm; Wt 58.0 kg
[2022-12-10] MEDS ORDERED: fentaNYL INJ 100 MCG/2 ML AMP IVP ONE ×2 (06:30→11:15)
[2022-12-10] MEDS ORDERED: NS IV 500 ML 500 ML IV ONE (06:30)
--- NOTE | 2022-12-10 06:42 | ED GU-Female ---
General Chief Complaint: OB < 20 WEEKS Stated Complaint: 12 WKS PREG,MISCARRIAGE Nursing Triage Note: TO ED VIA POV AND AMBULATORY TO ROOM 5 WITH C/O 12 WEEKS , BLEEDING AND CRAMPING STARTED AT 0000. PT SAW DR. GONSALES ON Wednesday12/07/22 AND WAS SCHEDULED FOR UPCOMING D&C. Source: patient, old records Exam Limitations: no limitations History of Present Illness Date Seen by Provider: Dec 10, 2022 Time Seen by Provider: 06:05 Initial Comments This 22-year-old young lady presents to the emergency room with probable miscarriage. LMP was September 17, 2022. She has had bleeding throughout much of this . She began bleeding consistent with miscarriage about 3 days ago. Last night the bleeding became heavy with intense cramping. Shortly after being roomed in the emergency room, she went to the restroom and passed a saclike clump of tissue presumed to be products of conception. Patient reports bleeding has been heavy and she is feeling lightheaded and shaky. She has also had some chills in the past few days without fever. Dr. Gonsales has been managing her obstetrical care and performed a vaginal ultrasound yesterday reportedly demonstrating no viable . A D&C is to be scheduled. Patient is Rh- and received RhoGAM on October 28. Vital signs are unremarkable at this time. Allergies and Home Medications Allergies Coded Allergies: No Known Drug Allergies (Unverified , 09/17/12) Patient Home Medication List Home Medication List Reviewed: Yes Hydrocodone Bit/Acetaminophen (HYDROcodone/APAP 5 MG/325 MG TAB) 1 Tab Tab, 1 TAB PO Q8H PRN for PAIN-MODERATE (5-7) Prescribed by: YOVANI NORTON on 05/14/21 0927 Ibuprofen (Ibuprofen) 600 Mg Tablet, 600 MG PO Q6H Prescribed by: REGINA PALMER on 12/10/22 0951 Review of Systems Review of Systems Constitutional: see HPI EENTM: no symptoms reported Respiratory: no symptoms reported Cardiovascular: no symptoms reported Gastrointestinal: no symptoms reported Genitourinary: see HPI : Yes LMP: Sep 17, 2022 Musculoskeletal: no symptoms reported Skin: no symptoms reported Psychiatric/Neurological: No Symptoms Reported Endocrine: No Symptoms Reported Hematologic/Lymphatic: No Symptoms Reported Past Erggbtl-Bnmpku-Ozdazl Hx Patient Social History Tobacco Use?: Yes Smoking Status: Current Everyday Smoker Use of E-Cig and/or Vaping dev: Yes E-Cig or Vaping type used: Nicotine Substance use?: Yes Substance type: Marijuana Alcohol Use?: No Immunizations Up To Date Tetanus Booster (TDap): Less than 5yrs PED Vaccines UTD: Yes Influenza Vaccine Up-to-Date: No; Not Current Seasonal Allergies Seasonal Allergies: Yes Past Medical History Surgery/Hospitalization HX: ANEMIA SEMAJ Surgeries: Yes Ear Surgery, Gallbladder Respiratory: No Currently Using CPAP: No Currently Using BIPAP: No Cardiac: No 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 Genitourinary: No Gastrointestinal: Yes Hiatal Hernia Musculoskeletal: No Endocrine: No HEENT: No Cancer: No Psychosocial: No Integumentary: No Blood Disorders: Yes (History of severe anemia requiring transfusion) Adverse Reaction/Blood Tranf: No Yes Family Medical History DAD HAS COPD Iron deficiency anemia Respiratory disorder 19 FATHER, Onset:40's - 50 No Pertinent Family Hx Physical Exam Vital Signs Vital Signs - First Documented 12/10/22 06:00 Pulse 78 Resp 22 B/P (MAP) 141/92 (108) Pulse Ox 100 O2 Delivery Room Air Capillary Refill : Less Than 3 Seconds Height, Weight, BMI Height: 5'3.00" Weight: 135lbs. 0.0oz. [id number]; 23.00 BMI Method:Stated General Appearance: WD/WN, mild distress, thin HEENT: normal ENT inspection Neck: normal inspection Cardiovascular: regular rate, rhythm, no edema, no murmur Respiratory: lungs clear, normal breath sounds, no respiratory distress Gastrointestinal: normal bowel sounds, soft, tenderness (Suprapubic) Extremities: normal inspection, no pedal edema Neurologic/Psychiatric: rn ent II-XII nml as tested, no motor/sensory deficits, alert, normal mood/affect, oriented x 3 Skin: normal color, warm/dry Progress/Results/Core Measures Suspected Sepsis SIRS Temperature: Pulse: 78 Respiratory Rate: 22 Laboratory Tests 12/10/22 06:41: White Blood Count 10.0 Blood Pressure 141 /92 Mean: 108 Laboratory Tests 12/10/22 06:41: Creatinine 0.70, Platelet Count 233 Results/Orders Lab Results Laboratory Tests Test 12/10/22 06:12 12/10/22 06:41 Range/Units Urine Color RED H Urine Clarity SL CLOUDY Urine pH 5.5 5-9 Urine Specific [place] <=1.005 1.016-1.022 Urine Protein TRACE H NEGATIVE Urine Glucose (UA) NEGATIVE NEGATIVE Urine Ketones NEGATIVE NEGATIVE Urine Nitrite NEGATIVE NEGATIVE Urine Bilirubin NEGATIVE NEGATIVE Urine Urobilinogen 0.2 < = 1.0 MG/DL Urine Leukocyte Esterase TRACE H NEGATIVE Urine RBC (Auto) 3+ H NEGATIVE Urine RBC 50-100 H /HPF Urine WBC RARE /HPF Urine Squamous Epithelial Cells 0-2 /HPF Urine Crystals NONE /LPF Urine Bacteria TRACE /HPF Urine Casts NONE /LPF Urine Mucus NEGATIVE /LPF Urine Culture Indicated NO White Blood Count 10.0 4.3-11.0 10^3/uL Red Blood Count 4.70 3.80-5.11 10^6/uL Hemoglobin 14.8 11.5-16.0 g/dL Hematocrit 44 35-52 % Mean Corpuscular Volume 94 80-99 fL Mean Corpuscular Hemoglobin 32 25-34 pg Mean Corpuscular Hemoglobin Concent 33 32-36 g/dL Red Cell Distribution Width 12.1 10.0-14.5 % Platelet Count 233 130-400 10^3/uL Mean Platelet Volume 9.0 9.0-12.2 fL Immature Granulocyte % (Auto) 0 % Neutrophils (%) (Auto) 76 H 42-75 % Lymphocytes (%) (Auto) 17 12-44 % Monocytes (%) (Auto) 6 0-12 % Eosinophils (%) (Auto) 1 0-10 % Basophils (%) (Auto) 1 0-10 % Neutrophils # (Auto) 7.5 1.8-7.8 10^3/uL Lymphocytes # (Auto) 1.7 1.0-4.0 10^3/uL Monocytes # (Auto) 0.6 0.0-1.0 10^3/uL Eosinophils # (Auto) 0.1 0.0-0.3 10^3/uL Basophils # (Auto) 0.1 0.0-0.1 10^3/uL Immature Granulocyte # (Auto) 0.0 0.0-0.1 10^3/uL Sodium Level 139 135-145 MMOL/L Potassium Level 4.2 3.6-5.0 MMOL/L Chloride Level 109 H 98-107 MMOL/L Carbon Dioxide Level 22 21-32 MMOL/L Anion Gap 8 5-14 MMOL/L Blood Urea Nitrogen 6 L 7-18 MG/DL Creatinine 0.70 0.60-1.30 MG/DL Estimat Glomerular Filtration Rate 125 BUN/Creatinine Ratio 9 Glucose Level 86 70-105 MG/DL Calcium Level 9.1 8.5-10.1 MG/DL C-Reactive Protein High Sensitivity 0.19 0.00-0.50 MG/DL Human Chorionic Gonadotropin, Quant 2263 H <5 MIU/ML My Orders Orders - LEIF RAGSDALE MD Ed Iv/Invasive Line Start (12/10/22 06:21) Ns Iv 500 Ml (Sodium Chloride 0.9%) (12/10/22 06:30) Basic Metabolic Panel (12/10/22 06:21) Cbc With Automated Diff (12/10/22 06:21) Hs C Reactive Protein (12/10/22 06:21) Hcg,Quantitative (12/10/22 06:21) Fentanyl Inj (Sublimaze Injection) (12/10/22 06:30) Ua Culture If Indicated (12/10/22 06:46) Us Ob<14 Wks Sngle W/Transvag (12/10/22 07:15) Morphine Injection (Morphine Injection (12/10/22 07:34) Rhogam Administration (12/10/22 07:34) Rh Immune Globulin Rhophylac (12/10/22 07:34) Rhogam Administration (12/10/22 07:34) Morphine Injection (Morphine Injection (12/10/22 09:48) Ed Admission (Communication) (12/10/22 09:59) Medications Given in ED Current Medications Medications Dose Ordered Sig/Dash Route Start Time Stop Time Status Last Admin Dose Admin Fentanyl Citrate 50 mcg ONCE ONCE IVP 12/10/22 06:30 12/10/22 06:31 DC 12/10/22 06:43 50 MCG Sodium Chloride 500 ml @ 0 mls/hr Q0M ONCE IV 12/10/22 06:30 12/10/22 06:31 DC 12/10/22 06:43 999 MLS/HR Vital Signs/I&O 12/10/22 12/10/22 06:00 10:20 Pulse 78 86 Resp 22 20 B/P (MAP) 141/92 (108) 123/77 Pulse Ox 100 100 O2 Delivery Room Air Room Air Capillary Refill : Less Than 3 Seconds Blood Pressure Mean: 108 Progress Note #1: Time: 06:43 Progress Note Patient was interviewed and examined. Chart was reviewed. The sac like clump of tissue was examined and sent for pathology evaluation. Patient is being treated with IV fluids and fentanyl while labs are being processed. Consideration will be given for repeat RhoGAM treatment given the heavy bleeding. I will discuss with Dr. Gonsales before ordering. Progress Note #2: Time: 07:38 Progress Note Labs were evaluated. hCG level was about 2200. The remainder of the BMP, CMP, and urinalysis were unremarkable by my review. I did discuss RhoGAM administration with Dr. Gonsales. She agrees based on drug administration recommendations that this patient should have a repeat dose. Since the blood loss is difficult to quantify and she reports heavy bleeding for 3 days, the 600 mcg dose will be administered. Patient's pain is being treated with fentanyl and morphine. Ultrasound to confirm evacuation of products of conception is pending. Progress Note #3: Time: 09:48 Progress Note Ultrasound report was reviewed. There possibly retained products of conception. I consulted with patient's primary obstetrical provider, Dr. Gonsales. She recommends surgical obstetrical consult with Dr. PALMER. I discussed with Dr. PALMER who presented to the ER and discussed options with the patient. Patient elects to proceed with D&C in the OR. She will go directly from the emergency room to the operating room. Patient reports pain is about 7/10, and she requests something additional for pain management while waiting. Morphine 5 mg is being administered. Departure Communication (Admissions) Time/Spoke to Admitting Phy: 09:40 Dr. PALMER Impression Primary Impression: Miscarriage Additional Impressions: Rh D negative blood type Retained products of conception Disposition: ADMITTED INPATIENT Condition: Stable Admissions Decision to Admit Reason: Admit from ER (General) Decision to Admit/Date: Dec 10, 2022 Time/Decision to Admit Time: 09:40 Departure-Patient Inst. Referrals: [facility] (PCP/Family) Primary Care Physician Scripts Ibuprofen (Ibuprofen) 600 Mg Tablet 600 MG PO Q6H for PAIN, #60 TAB 0 Refills Prov: REGINA PALMER DO 12/10/22 Copy Copies To 1: PREETHI GONSALES MD, JOSHUA T MD Dec 10, 2022 06:42
[2022-12-10 06:52] LABS: BASOPHILS # (AUTO) 0.1 10^3/uL (0.0-0.1); BASOPHILS % (AUTO) 1 % (0-10); EOSINOPHILS # (AUTO) 0.1 10^3/uL (0.0-0.3); EOSINOPHILS % (AUTO) 1 % (0-10); HEMATOCRIT 44 % (35-52); HEMOGLOBIN 14.8 g/dL (11.5-16.0); LYMPHOCYTES # (AUTO) 1.7 10^3/uL (1.0-4.0); LYMPHOCYTES % (AUTO) 17 % (12-44); MEAN CORPUSCULAR HEMOGLOBIN 32 pg (25-34); MEAN CORPUSCULAR HGB CONC 33 g/dL (32-36); MEAN CORPUSCULAR VOLUME 94 fL (80-99); MONOCYTES # (AUTO) 0.6 10^3/uL (0.0-1.0); MONOCYTES % (AUTO) 6 % (0-12); NEUTROPHILS # (AUTO) 7.5 10^3/uL (1.8-7.8); NEUTROPHILS % (AUTO) 76 % (42-75); PLATELET COUNT 233 10^3/uL (130-400)
[2022-12-10 07:03] LABS: POTASSIUM 4.2 MMOL/L (3.6-5.0)
[2022-12-10 07:04] LABS: CALCIUM 9.1 MG/DL (8.5-10.1)
[2022-12-10 07:08] LABS: CREATININE SERUM 0.7 MG/DL (0.60-1.30)
[2022-12-10 07:16] LABS: BILIRUBIN,URINE NEGATIVE (NEGATIVE); CLARITY,URINE SL CLOUDY; COLOR,URINE RED; GLUCOSE, URINE (UA) NEGATIVE (NEGATIVE); KETONES,URINE NEGATIVE (NEGATIVE); LEUKOCYTE ESTERASE ,URINE TRACE (NEGATIVE); NITRITE,URINE NEGATIVE (NEGATIVE); PH,URINE 5.5 (5-9); PROTEIN,URINE TRACE (NEGATIVE)
[2022-12-10] MEDS ORDERED: morphine INJ 10 MG/ML 1ML (SYR OR VIAL) IVP STA ×2 (07:34→09:48)
[2022-12-10 07:35] LABS: BACTERIA,URINE TRACE /HPF; RBC,URINE 50-100 /HPF; SQUAMOUS EPITHELIAL CELL,UR 0-2 /HPF; WBC,URINE RARE /HPF
--- NOTE | 2022-12-10 08:36 | Diagnostic Imaging Report ---
INDICATION: bleeding The uterus measures 7.1 x 4.9 x 7.9 cm. The endometrium measures 1.6 cm in thickness. It is heterogeneous consistent with retained blood products. There is hyperemia of the endometrium surrounding the retained blood products. The ovaries appear normal. There is no free fluid. IMPRESSION: There are blood products in the endometrial cavity. There is hyperemia in the endometrium surrounding the blood products suspicious for retained products of conception. Dictated by: Dictated on workstation # [id number]
[2022-12-10] MEDS ORDERED: IBUP-1773 PO (09:51)
--- NOTE | 2022-12-10 09:51 | Discharge Inst-Women's Service ---
Discharge Inst-Women's Serv Depart Medication/Instructions New, Converted or Re-Newed RX: Transmitted to Pharmacy Final Diagnosis Incomplete ab Problems Reviewed?: Yes Consults/Follow Up Additional Follow Up: Yes Orders/Referrals Dr. Palmer in 1-2 weeks Activity Activity: Activity as Tolerated Driving Instructions: No Driving for 1 Week NO SMOKING: NO SMOKING Nothing Inside Vagina: No Douching, No [place], No Tampons Diet Discharge Diet: No Restrictions Symptoms to Report to : Bleeding Excessive, Pain Increased, Fever Over 101 Degrees F, Vaginal Bleeding Increase, Questions/Concerns For Any Problems or Questions: Contact Your Physician REGINA PALMER DO Dec 10, 2022 09:51
--- NOTE | 2022-12-10 09:53 | History & Physical-Surgical ---
HPO-Surgical History of Present Illness Chief Complaint: TO ED VIA POV AND AMBULATORY TO ROOM 5 WITH C/O 12 WEEKS , BLEEDING AND CRAMPING STARTED AT 0000. PT SAW DR. GONSALES ON Wednesday12/07/22 AND WAS SCHEDULED FOR UPCOMING D&C. Diagnosis/Surgical Indication: Incomplete Ab Procedure: Suction D and C Date of Surgery: Dec 10, 2022 Weight (Pounds): 135 Weight (Ounces): 0.0 Height (Feet): 5 Height (Inches): 3.00 Allergies and Home Medications Allergies Coded Allergies: No Known Drug Allergies (Unverified , 09/17/12) Patient Home Medication List Home Medication List Reviewed: Yes Hydrocodone Bit/Acetaminophen (HYDROcodone/APAP 5 MG/325 MG TAB) 1 Tab Tab, 1 TAB PO Q8H PRN for PAIN-MODERATE (5-7) Prescribed by: YOVANI NORTON on 05/14/21 0927 Ibuprofen (Ibuprofen) 600 Mg Tablet, 600 MG PO Q6H Prescribed by: REGINA PALMER on 12/10/22 0951 Past Iwdfxky-Nfqpbp-Usrwmk Hx Patient Social History Drug of Choice: THC Smoking Status: Current Everyday Smoker 2nd Hand Smoke Exposure: Yes Recent Hopitalizations: No Alcohol Use?: No Substance type: Marijuana Immunizations Up To Date Tetanus Booster (TDap): Less than 5yrs Pediatric: Yes Date of Pneumonia Vaccine: Apr 25, 2001 Seasonal Allergies Seasonal Allergies: Yes Surgeries Yes Ear Surgery, Gallbladder Respiratory No Currently Using CPAP: No Currently Using BIPAP: No Cardiovascular No Neurological No 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 Genitourinary No Gastrointestinal Yes Hiatal Hernia Musculoskeletal No Endocrine History of Endocrine Disorders: No HEENT History of HEENT Disorders: No Cancer No Psychosocial History of Psychiatric Problem: No Integumentary History of Skin or Integumenta: No Blood Transfusions History of Blood Disorders: Yes (History of severe anemia requiring transfusion) Adverse Reaction to a Blood Tr: No Family Medical History Significant Family History: No Pertinent Family Hx Family Hx: DAD HAS COPD Iron deficiency anemia Respiratory disorder 19 FATHER, Onset:40's - 50 Exam Vital Signs Vital Signs 12/10/22 06:00 Pulse 78 Resp 22 B/P (MAP) 141/92 (108) Pulse Ox 100 O2 Delivery Room Air Capillary Refill : Less Than 3 Seconds Labs Laboratory Tests Test 12/10/22 06:12 12/10/22 06:41 Range/Units Urine Color RED H Urine Clarity SL CLOUDY Urine pH 5.5 5-9 Urine Specific [place] <=1.005 1.016-1.022 Urine Protein TRACE H NEGATIVE Urine Glucose (UA) NEGATIVE NEGATIVE Urine Ketones NEGATIVE NEGATIVE Urine Nitrite NEGATIVE NEGATIVE Urine Bilirubin NEGATIVE NEGATIVE Urine Urobilinogen 0.2 < = 1.0 MG/DL Urine Leukocyte Esterase TRACE H NEGATIVE Urine RBC (Auto) 3+ H NEGATIVE Urine RBC 50-100 H /HPF Urine WBC RARE /HPF Urine Squamous Epithelial Cells 0-2 /HPF Urine Crystals NONE /LPF Urine Bacteria TRACE /HPF Urine Casts NONE /LPF Urine Mucus NEGATIVE /LPF Urine Culture Indicated NO White Blood Count 10.0 4.3-11.0 10^3/uL Red Blood Count 4.70 3.80-5.11 10^6/uL Hemoglobin 14.8 11.5-16.0 g/dL Hematocrit 44 35-52 % Mean Corpuscular Volume 94 80-99 fL Mean Corpuscular Hemoglobin 32 25-34 pg Mean Corpuscular Hemoglobin Concent 33 32-36 g/dL Red Cell Distribution Width 12.1 10.0-14.5 % Platelet Count 233 130-400 10^3/uL Mean Platelet Volume 9.0 9.0-12.2 fL Immature Granulocyte % (Auto) 0 % Neutrophils (%) (Auto) 76 H 42-75 % Lymphocytes (%) (Auto) 17 12-44 % Monocytes (%) (Auto) 6 0-12 % Eosinophils (%) (Auto) 1 0-10 % Basophils (%) (Auto) 1 0-10 % Neutrophils # (Auto) 7.5 1.8-7.8 10^3/uL Lymphocytes # (Auto) 1.7 1.0-4.0 10^3/uL Monocytes # (Auto) 0.6 0.0-1.0 10^3/uL Eosinophils # (Auto) 0.1 0.0-0.3 10^3/uL Basophils # (Auto) 0.1 0.0-0.1 10^3/uL Immature Granulocyte # (Auto) 0.0 0.0-0.1 10^3/uL Sodium Level 139 135-145 MMOL/L Potassium Level 4.2 3.6-5.0 MMOL/L Chloride Level 109 H 98-107 MMOL/L Carbon Dioxide Level 22 21-32 MMOL/L Anion Gap 8 5-14 MMOL/L Blood Urea Nitrogen 6 L 7-18 MG/DL Creatinine 0.70 0.60-1.30 MG/DL Estimat Glomerular Filtration Rate 125 BUN/Creatinine Ratio 9 Glucose Level 86 70-105 MG/DL Calcium Level 9.1 8.5-10.1 MG/DL C-Reactive Protein High Sensitivity 0.19 0.00-0.50 MG/DL Human Chorionic Gonadotropin, Quant 2263 H <5 MIU/ML General Appearance: Alert, Oriented X3 HEENT: Atraumatic Respiratory: Clear to Auscultation Cardiovascular: Regular Rate Abdominal: Normal Bowel Sounds Psych/Mental Status: Mental Status NL Assessment/Plan Assessment and Plan Diagnosis: Incomplete Ab Vaginal hemorrhage P: Suction D and C Admission Diagnosis Diagnosis: Incomplete Ab Vaginal hemorrhage P: Suction D and C Admission Status: Other (Same Day Surgery) REGINA PALMER DO Dec 10, 2022 09:53
[2022-12-10] MEDS ORDERED: ONDANSETRON 4 MG/2 ML (SDV) Z0FRAN IVP PRN ×2 (10:00→11:15)
[2022-12-10] MEDS ORDERED: LACTATED RINGERS 1,000 ML IV PRN ×2 (10:00→10:15)
[2022-12-10] MEDS ORDERED: HYDROcodone/APAP 5 MG/325 MG (LORTAB) TAB PO PRN (10:00)
[2022-12-10] MEDS ORDERED: D5 LR IV SOLUTION 1,000 ML IV SCH (10:00)
[2022-12-10] MEDS ORDERED: KETOROLAC 30 MG/ML VIAL IVP ONE (10:00)
[2022-12-10] MEDS ORDERED: fentaNYL INJ 100 MCG/2 ML AMP ONE (10:16)
[2022-12-10] MEDS ORDERED: MIDAZOLAM 2 MG/2 ML (VERSED) VIAL ONE (10:16)
[2022-12-10] MEDS ORDERED: KETOROLAC 30 MG/ML VIAL ONE (10:46)
[2022-12-10] MEDS ORDERED: LIDOCAINE PF 2% 5 ML (XYLOCAINE) VIAL ONE (10:46)
[2022-12-10] MEDS ORDERED: proPOfol 200 MG/20 ML (DIPRIVAN) VIAL IV ONE (10:46)
[2022-12-10] MEDS ORDERED: ONDANSETRON 4 MG/2 ML (SDV) Z0FRAN ONE (10:46)
[2022-12-10] MEDS ORDERED: SEVOFLURANE (ULTANE) 15 ML INHAL SOLN ONE (10:57)
[2022-12-10] MEDS ORDERED: morphine INJ 10 MG/ML 1ML (SYR OR VIAL) IVP ONE (11:15)
--- NOTE | 2022-12-10 11:15 | Anesthesia-General Post-Op ---
General Patient Condition Mental Status/LOC: Same as Preop Cardiovascular: Satisfactory Nausea/Vomiting: Absent Respiratory: Satisfactory Pain: Controlled Complications: Absent Post Op Complications Complications None Follow Up Care/Instructions Patient Instructions None needed. Anesthesia/Patient Condition Patient Condition Patient is doing well, no complaints, stable vital signs, no apparent adverse anesthesia problems. No complications reported per nursing. GIOVANNY ORTEGA CRNA Dec 10, 2022 11:15
--- NOTE | 2022-12-10 12:55 | OPERATIVE REPORT ---
DATE OF SERVICE: 12/10/2022 PREOPERATIVE DIAGNOSIS: A 22-year-old female with incomplete . POSTOPERATIVE DIAGNOSIS: A 22-year-old female with incomplete . PROCEDURE: Suction D and C. SURGEON: Regina Palmer DO ANESTHESIA: LMA general. ESTIMATED BLOOD LOSS: 100 mL URINE OUTPUT: 250 mL clear at the end of the procedure. FLUIDS: 500 mL lactated Ringer's solution. FINDINGS: Grossly normal-appearing external female genitalia with a small to moderate amount of products of conception. SPECIMEN SENT: Products of conception. INDICATIONS FOR PROCEDURE: This 22-year-old female, was a patient who presented to the emergency department with significant amount of vaginal bleeding. She was evaluated via ultrasound, which suggested retained products of conception. Due to concerns of incomplete AB. I discussed with the patient proceeding with suction D and C versus waiting and watching to see if her bleeding slowed down. The patient has been notified that she did not have a viable over two weeks ago and wished to proceed with suction D and C. Risk of the procedure were discussed with the patient in detail and after all of her questions were answered, consent was obtained. The patient was taken to the operating room. DESCRIPTION IN DETAIL: Once in the operating room, anesthesia was administered and found to be adequate, was placed in dorsal lithotomy position, prepped and draped in normal sterile fashion. A timeout was performed. A weighted speculum was inserted into the patient's vagina. Right angle retractor was used to visualize the cervix, was grasped at 12 o'clock position using a long Allis clamp. I then gently sound the uterine cavity depth, sound to be 8 cm. I selected a #7 suction curette and advanced into the uterus gently. I applied Gualberto suction and 170 mmHg was reached. I methodically rotate the curved rigid Bastrop suction curette, multiple passes clearing the endometrium of all products of conception. This is done on several passes, after which I performed a gentle curettage with a sharp curette after which there is little to no bleeding noted. I make one final pass with the suction curette, after which there is little to no bleeding noted from the external cervical os. I then removed all instruments from the patient's vagina. The patient tolerated the procedure well and was taken to recovery in stable condition. Lap and sponge count was correct at the end of the procedure. Instrument counts correct as well. Job ID: [id number] DocumentID: [id number] Dictated Date: 12/10/2022 10:58:55 Recreation Professor Date: 12/10/2022 12:53:00 Dictated By: REGINA PALMER DO
== END 2022-12-10 12:45 ==
LOC: EDUNIT# 05:34 → ER 05:37 → SDC 10:04
PROVIDERS: ATTEND Obstetrics & Gynecology
DX: O03.4 Incomplete spontaneous abortion without complication (principal); F17.210 Nicotine dependence, cigarettes, uncomplicated; Z28.310 Unvaccinated for COVID-19
CPT/HCPCS: 36415; 76801; 76817; 80048; 81000; 84702; 85025; 86141; 96372; 96374; 96375; 96376

== ENCOUNTER 2023-04-18 09:59 | Emergency (ER) | payer MEDICAID ==
[~2023-04-18] VITALS: Ht 157 cm; Wt 60.9 kg
[~2023-04-18 09:59] MED LIST changes: +IBUP-1773 PO
--- NOTE | 2023-04-18 10:17 | ED GU-Female ---
General Chief Complaint: OB > 20 WEEKS Stated Complaint: 14 WEEKS /BLEEDING Nursing Triage Note: PT AMB TO RM 9 PT CO OF WOKE UP THIS AM AND HAS HAD BLOOD IN UNDERWEAR. DENIES CRAMPING OR PAIN. 2ND PREG FOR PT. LMP MID DECEMBER. APPROX DUE DATE JUL 18. Source: patient Exam Limitations: no limitations History of Present Illness Date Seen by Provider: Apr 18, 2023 Time Seen by Provider: 10:16 Initial Comments Patient is a 22-year-old female G2, P0 who presents to the emergency room this morning with a significant amount of blood in her underwear. She states that her significant other had seen a couple of drops of blood on the floor. When she got up this morning to go urinate she was able to wipe what look like brownish blood but states that her underwear was "full of blood". She denies any abdominal cramping. She is nauseated. No recent trauma. She is drinking lots of water and taking vitamins. She did have a D&C on December 10 of [address]. Palmer. She had a very busy day yesterday and did not get home until midnight after her gender reveal celebration. She is noted in the medical record to be Rh-. She does not believe she has had any RhoGAM injections this . Continues to be asymptomatic at this time. She believes that she is approximately 13 weeks and 4 days with an estimated date of confinement 10-20-2023. Timing/Duration: this morning Severity/Quality: mild Activities at Onset: sleep Sexual Bovina History: single partner Associated Symptoms: nausea/vomiting Allergies and Home Medications Allergies Coded Allergies: Penicillins (Verified Allergy, Unknown, 04/18/23) Patient Home Medication List Home Medication List Reviewed: Yes Hydrocodone Bit/Acetaminophen (HYDROcodone/APAP 5 MG/325 MG TAB) 1 Tab Tab, 1 TAB PO Q8H PRN for PAIN-MODERATE (5-7) Prescribed by: YOVANI NORTON on 05/14/21 09 Ibuprofen (Ibuprofen) 600 Mg Tablet, 600 MG PO Q6H Prescribed by: REGINA PALMER on 12/10/22 0951 Review of Systems Review of Systems Constitutional: see HPI EENTM: no symptoms reported Respiratory: no symptoms reported Cardiovascular: no symptoms reported Gastrointestinal: no symptoms reported Genitourinary: other (Vaginal bleeding) Expected Date of Delivery: Oct 20, 2023 Musculoskeletal: no symptoms reported Skin: no symptoms reported Past Fbzmyno-Foywzv-Spgxoj Hx Patient Social History Tobacco Use?: No Use of E-Cig and/or Vaping dev: Yes E-Cig or Vaping type used: Nicotine Use of E-Cig and/or Vaping Bunny: Current Everyday User Substance use?: No Alcohol Use?: No Immunizations Up To Date Tetanus Booster (TDap): Less than 5yrs PED Vaccines UTD: Yes First/Initial COVID19 Vaccinat: 04/01/2021 Second COVID19 Vaccination Chad: 04/01/2021 Third COVID19 Vaccination Date: 04/01/2021 Seasonal Allergies Seasonal Allergies: Yes Past Medical History Surgery/Hospitalization HX: ANEMIA SEMAJ Surgeries: Yes Ear Surgery, Gallbladder Respiratory: No Currently Using CPAP: No Currently Using BIPAP: No Cardiac: No Neurological: No Expected Date of Delivery: Jul 18, 2023 Last Menstrual Period: Dec 16, 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 Genitourinary: No Gastrointestinal: Yes Hiatal Hernia Musculoskeletal: No Endocrine: No HEENT: No Cancer: No Psychosocial: No Integumentary: No Blood Disorders: Yes (History of severe anemia requiring transfusion) Adverse Reaction/Blood Tranf: No Family Medical History DAD HAS COPD Iron deficiency anemia Respiratory disorder 19 FATHER, Onset:40's - 50 No Pertinent Family Hx Physical Exam Vital Signs Vital Signs - First Documented 04/18/23 10:05 Temp 37.1 Pulse 89 Resp 21 B/P (MAP) 112/92 (99) Pulse Ox 99 Capillary Refill : Less Than 3 Seconds Height, Weight, BMI Height: 5'3.00" Weight: 135lbs. 0.0oz. 61.949678bk; 24.00 BMI Method:Stated General Appearance: WD/WN, thin HEENT: PERRL/EOMI Cardiovascular: regular rate, rhythm Respiratory: lungs clear, normal breath sounds, no respiratory distress, no accessory muscle use Gastrointestinal: non tender, soft Extremities: normal range of motion, non-tender, normal inspection, no pedal edema, no calf tenderness Neurologic/Psychiatric: no motor/sensory deficits, alert, normal mood/affect, oriented x 3 Skin: normal color, warm/dry Progress/Results/Core Measures Suspected Sepsis SIRS Temperature: Pulse: 89 Respiratory Rate: 21 Blood Pressure 112 /92 Mean: 99 Results/Orders Lab Results Laboratory Tests Test 04/18/23 10:23 Range/Units Urine Color YELLOW Urine Clarity CLEAR Urine pH 6.0 5-9 Urine Specific [place] <=1.005 1.016-1.022 Urine Protein NEGATIVE NEGATIVE Urine Glucose (UA) NEGATIVE NEGATIVE Urine Ketones NEGATIVE NEGATIVE Urine Nitrite NEGATIVE NEGATIVE Urine Bilirubin NEGATIVE NEGATIVE Urine Urobilinogen 0.2 < = 1.0 MG/DL Urine Leukocyte Esterase NEGATIVE NEGATIVE Urine RBC (Auto) 2+ H NEGATIVE Urine RBC 0-2 /HPF Urine WBC NONE /HPF Urine Squamous Epithelial Cells 0-2 /HPF Urine Crystals NONE /LPF Urine Bacteria NEGATIVE /HPF Urine Casts NONE /LPF Urine Mucus NEGATIVE /LPF Urine Culture Indicated NO My Orders Orders - HILDA POTTER MD Ua Culture If Indicated (04/18/23 10:24) Rho(D) Immune Globulin (Rhophylac) (04/18/23 10:30) Medications Given in ED Current Medications Medications Dose Ordered Sig/Dash Route Start Time Stop Time Status Last Admin Dose Admin Rho Immune Globulin 300 mcg ONCE ONCE IM/IV 04/18/23 10:30 04/18/23 10:31 DC 04/18/23 10:43 300 MCG Vital Signs/I&O 04/18/23 10:05 Temp 37.1 Pulse 89 Resp 21 B/P (MAP) 112/92 (99) Pulse Ox 99 Capillary Refill : Less Than 3 Seconds Blood Pressure Mean: 99 Progress Note : Time: 10:35 Progress Note POC ultrasound at bedside identified adequate FHT with positive movement. No obvious abnormalities 1046 UA negative; no bacteria - min blood. Patient reports vag bleeding stopped. Urine appears light, clear yellow. Pelvic exam not performed. She is asymptomatic. Supportive care. Return precautions given. Rhogam administered. Departure Impression Primary Impression: Threatened miscarriage in early Disposition: 01 HOME, SELF-CARE Condition: Stable Departure-Patient Inst. Decision time for Depature: 10:47 Referrals: [facility] (PCP/Family) Primary Care Physician REGINA PALMER DO Patient Instructions: Threatened Miscarriage (DC) Add. Discharge Instructions: Drink lots of water to stay well-hydrated. Monitor for return of bleeding especially with cramping/pain - if this occurs please return to the emergency room for reevaluation. No evidence of infection in your urine today. Please follow-up with Dr. Palmer's office tomorrow. You have been given a shot of RhoGAM here in the emergency department this morning. Copy Copies To 1: REGINA PALMER KATHRYN M MD Apr 18, 2023 10:17
[2023-04-18] MEDS ORDERED: RHO(D) IMMUNE GLOBULIN 300 MCG/2 ML SYRINGE IM/IV ONE (10:30)
[2023-04-18 10:32] LABS: BILIRUBIN,URINE NEGATIVE (NEGATIVE); CLARITY,URINE CLEAR; COLOR,URINE YELLOW; GLUCOSE, URINE (UA) NEGATIVE (NEGATIVE); KETONES,URINE NEGATIVE (NEGATIVE); LEUKOCYTE ESTERASE ,URINE NEGATIVE (NEGATIVE); NITRITE,URINE NEGATIVE (NEGATIVE); PROTEIN,URINE NEGATIVE (NEGATIVE)
[2023-04-18 10:40] LABS: BACTERIA,URINE NEGATIVE /HPF; RBC,URINE 0-2 /HPF; SQUAMOUS EPITHELIAL CELL,UR 0-2 /HPF
[2023-04-18 10:49] VITALS: BP 115/80
== END 2023-04-18 10:49 | disposition home or self-care (01) ==
LOC: EDUNIT# 09:59 → ER 10:01
DX: O20.0 Threatened abortion (principal); O99.331 Smoking (tobacco) complicating pregnancy, first trimester; F17.290 Nicotine dependence, other tobacco product, uncomplicated; Z3A.13 13 weeks gestation of pregnancy; Z28.310 Unvaccinated for COVID-19
CPT/HCPCS: 81000

== ENCOUNTER → 2023-05-31 | Outpatient (CLI) | payer MEDICAID ==
--- NOTE | 2023-05-31 12:33 | Diagnostic Imaging Report ---
INDICATION: anatomy survey TECHNIQUE: Multiple real-time grayscale images were obtained over the gravid uterus. COMPARISON: None FINDINGS: Single live intrauterine is in cephalic presentation. The cervix measures approximately 3.3 cm in length. Placenta is posterior position and there is no previa. The amount of amniotic fluid appears visually appropriate. Due to advanced gestational age, maternal adnexa are not well seen. The SUZE is normal at 16.21 cm. The following anatomy is visualized and normal: Right ventricular outflow tract, stomach, four-chamber heart, spine, urinary bladder, three-vessel cord, umbilical cord insertion, left ventricular outflow tract, cerebellum, cisterna magna, kidneys and cerebral ventricles. Biometrical measurements are as follows: Biparietal 4.91 cm, age 20 weeks 6 days. Head circumference 18.02 cm, age 20 weeks 4 days. Abdominal circumference 14.26 cm, age 19 weeks 5 days. Femur length 3.00 cm, age 19 weeks 2 days. Sonographic estimate age: 20 weeks 1 days. Sonographic estimated date of delivery: 10/17/2023. Estimated Weight: 301 gm (+/- 44 gm). LMP percentile: 38%. heart rate: 149 beats per minute. number: 1 of 1. IMPRESSION: 1. Single live intrauterine has normal anatomy survey. Dictated by: Dictated on workstation # [id number]
== END ==
LOC: RAD 09:30
PROVIDERS: ATTEND Nurse Practitioner Women's Health
DX: Z34.02 Encounter for supervision of normal first pregnancy, second trimester (principal); Z3A.20 20 weeks gestation of pregnancy
CPT/HCPCS: 76805

== ENCOUNTER 2023-07-19 09:43 | Outpatient (CLI) | payer MEDICAID ==
[~2023-07-19] VITALS: Ht 160 cm; Wt 72.8 kg
[2023-07-19 10:20] VITALS: BP 126/76
[2023-07-19 10:25] LABS: CLARITY,URINE CLEAR; COLOR,URINE YELLOW; GLUCOSE, URINE (UA) NEGATIVE (NEGATIVE); KETONES,URINE NEGATIVE (NEGATIVE); PROTEIN,URINE NEGATIVE (NEGATIVE)
[2023-07-19 10:26] LABS: BACTERIA,URINE TRACE /HPF; BILIRUBIN,URINE NEGATIVE (NEGATIVE); LEUKOCYTE ESTERASE ,URINE TRACE (NEGATIVE); NITRITE,URINE NEGATIVE (NEGATIVE); WBC,URINE 0-2 /HPF
--- NOTE | 2023-07-20 07:59 | Physician Query-Final Dx ---
IVETTE,07/20/23 0759: Clinic Account Progress/Dx Physician Query: Please give diagnosis Please include # weeks gestation Date of Service Jul 19, 2023 at 09:43 REGINA PALMER DO 07/20/23 0843: Clinic Account Progress/Dx DIAGNOSIS: Diagnosis 26 week IUP Decreased movement Vaginal spotting IVETTE,NovJul 20, 2023 07:59 REGINA PALMER DO Jul 20, 2023 08:43
== END 2023-07-19 10:43 ==
LOC: WSo 09:43 → LDRP 09:43 → WSo 10:43
PROVIDERS: ATTEND Obstetrics & Gynecology
DX: O36.8120 Decreased fetal movements, second trimester, not applicable or unspecified (principal); Z3A.26 26 weeks gestation of pregnancy
CPT/HCPCS: 81000; 99213

== ENCOUNTER 2023-08-31 15:58 | Outpatient (CLI) | payer MEDICAID ==
[~2023-08-31] VITALS: Ht 160 cm; Wt 75.3 kg
[2023-08-31 16:29] VITALS: BP 112/67
[2023-08-31 16:50] LABS: CLARITY,URINE CLOUDY; COLOR,URINE YELLOW
[2023-08-31 16:51] LABS: BACTERIA,URINE MODERATE /HPF; BILIRUBIN,URINE NEGATIVE (NEGATIVE); GLUCOSE, URINE (UA) NEGATIVE (NEGATIVE); KETONES,URINE 1+ (NEGATIVE); LEUKOCYTE ESTERASE ,URINE NEGATIVE (NEGATIVE); NITRITE,URINE NEGATIVE (NEGATIVE); PH,URINE 6.5 (5-9); PROTEIN,URINE 3+ (NEGATIVE); RBC,URINE RARE /HPF; WBC,URINE 0-2 /HPF
[2023-08-31 16:52] LABS: GRANULAR CASTS,URINE 0-2 /LPF
[2023-08-31] MEDS ORDERED: NS IV 1000 ML 1,000 ML ONE ×2 (17:13→18:19)
[2023-08-31] MEDS ORDERED: NS IV 1000 ML 1,000 ML IV SCH ×2 (17:15→18:30)
[2023-08-31 17:34] LABS: HEMATOCRIT 37 % (35-52); HEMOGLOBIN 12.6 g/dL (11.5-16.0); MEAN CORPUSCULAR HEMOGLOBIN 33 pg (25-34); MEAN CORPUSCULAR HGB CONC 34 g/dL (32-36); MEAN CORPUSCULAR VOLUME 96 fL (80-99); MEAN PLATELET VOLUME 9.5 fL (9.0-12.2); PLATELET COUNT 232 10^3/uL (130-400); WHITE BLOOD COUNT 11.1 10^3/uL (4.3-11.0)
[2023-08-31 17:55] LABS: ALBUMIN 3.2 GM/DL (3.2-4.5); POTASSIUM 3.9 MMOL/L (3.6-5.0)
[2023-08-31 17:56] LABS: CALCIUM 8.6 MG/DL (8.5-10.1)
[2023-08-31 17:58] LABS: TOTAL PROTEIN 6.4 GM/DL (6.4-8.2)
[2023-08-31 18:00] LABS: BILIRUBIN,TOTAL 0.7 MG/DL (0.1-1.0)
[2023-08-31 18:01] LABS: CREATININE SERUM 0.65 MG/DL (0.60-1.30)
[2023-08-31] MEDS ORDERED: morphine INJ 4 MG/ML 1 ML (VIAL/SYRINGE) IVP ONE (18:15)
[2023-08-31 18:30] VITALS: BP 112/73
[2023-08-31 19:35] VITALS: BP 120/73
[2023-08-31 19:40] VITALS: BP 120/73
--- NOTE | 2023-09-01 08:27 | Physician Query-Final Dx ---
IVETTE09/01/23 0827: Clinic Account Progress/Dx Physician Query: Please give diagnosis Please include # weeks gestation Date of Service Aug 31, 2023 at 15:58 REGINA PALMER DO 09/01/23 1224: Clinic Account Progress/Dx DIAGNOSIS: Diagnosis 33 week pelvic pressure and pain IVETTE,NovSep 01, 2023 08:27 REGINA PALMER DO Sep 01, 2023 12:24
== END 2023-08-31 19:40 | disposition home or self-care (01) ==
LOC: WSo 15:58 → LDRP 15:58 → WSo 19:40
PROVIDERS: ATTEND Obstetrics & Gynecology
DX: O26.893 Other specified pregnancy related conditions, third trimester (principal); Z3A.33 33 weeks gestation of pregnancy
CPT/HCPCS: 36415; 80053; 81000; 85027; 96360; 99213

== ENCOUNTER → 2023-10-04 | Outpatient (CLI) | payer MEDICAID ==
[~2023-10-04] MED LIST changes: +ACET-93 PO; +BENZ78AE5 TP; +DIBU30OI TOP; +DOCU100C37 PO; +FERR325T24 PO; +IBUP-844 PO; +LABE200T10 PO
== END ==
LOC: LABNPT 09:20
PROVIDERS: ATTEND Obstetrics & Gynecology
DX: O13.9 Gestational [pregnancy-induced] hypertension without significant proteinuria, unspecified trimester (principal)
CPT/HCPCS: 82570; 84156

== ENCOUNTER 2023-10-06 06:00 | Inpatient (IN) | payer MEDICAID ==
[2023-10-06] VITALS (84 sets, daily range): BP systolic 95–167; BP diastolic 54–108
[~2023-10-06] VITALS: Ht 160 cm; Wt 80.3 kg
[~2023-10-06 06:00] MED LIST changes: -ACET-93 PO; -BENZ78AE5 TP; -DIBU30OI TOP; -DOCU100C37 PO; -FERR325T24 PO; -IBUP-844 PO; -LABE200T10 PO
--- OUTSIDE RECORDS SUMMARY | 2023-10-06 06:11 | XMS REPORT ---
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 203169095 Problem Syncope, unspecified syncope type R55 confirmed 641303672 Problem Nausea R11.0 confirmed 188498903 Problem Missed period N92.6 confirmed 433371 00 Problem Anxiety F41.9 confirmed 04935958 Problem Encounter for test, result unknown Z32.00 confirmed 964490785 Problem Iron deficiency anemia secondary to inadequate dietary iron intake D50.8 confirmed 723138608 Problem Irregular menstrual bleeding N92.6 confirmed 72450919 Problem History of iron deficiency anemia Z86.2 confirmed 572752552 Problem Iron deficiency anemia, unspecified iron deficiency anemia type D50.9 confirmed 24343592 ALLERGIES Allergen (clinical drug ingredient) Drug/Non Drug Allergy documented on EMR Reaction Allergy Type Onset Date Status penicillin V Penicillin V Potassium([facility] Code:[address]-84) Unknown Drug Allergy Active ENCOUNTERS from 2000 to 2023-08-19 Encounter Location Date Provider Diagnosis [facility] [address] [place] [address] Aug, PREETHI GONSALES Nexplanon removal Z30.46 and COVID-19 vaccination declined Z28.21 IMMUNIZATIONS Vaccine Route Administration Date Status PRIVATE VARICELLA Unknown January 29, 2005 Administ ered PRIVATE MMR Unknown January 29, 2005 Administered PRIVATE MMR Unknown Nov 17, 2001 Administered PRIVATE MENINGOCOCCAL (MENVEO) IM Intramuscular February 24, 2017 Administered prevnar pcv 7 (history) Unknown March 31, 2001 Admi nistered prevnar pcv 7 (history) Unknown January 20, 2001 Ad ministered PRIVATE POLIO (IPV) Unknown January 29, 2005 Admini stered PRIVATE VARICELLA Unknown January 27, 2007 Administ ered PRIVATE FLULAVAL QUAD 0.5ML (6 MO AND UP) 2019 IM Intramuscular Aug 09, 2018 Administered PRIVATE GARDASIL 9 (HPV) IM Intramuscular May 15 6 Administered VFC HEP A (PEDS/ADOLESCENT-2 DOSE) IM Intramuscular Oc 2018 Administered PRIVATE POLIO (IPV) Unknown January 20, 2001 Admini stered PRIVATE POLIO (IPV) Unknown March 31, 2001 Administ ered PRIVATE POLIO (IPV) Unknown Nov 17, 2001 Administ ered PRIVATE TDAP (ADACEL) Unknown Jun 27, 2014 Admini stered PRIVATE MENINGOCOCCAL (MENVEO) IM Intramuscular May 20, 2015 Administered hepatitis b pediatric (history) Unknown Nov 18 001 Administered hepatitis b pediatric (history) Unknown January 20, 2001 Administered hepatitis b pediatric (history) Unknown Nov 17 002 Administered VFC FLULAVAL QUAD 0.5ML (6 M O AND UP) 2019 IM Intramuscular Aug 25, 2019 Administered PRIVATE DTAP (INFANRIX) Unknown Nov 17, 2001 Admi nistered PRIVATE DTAP (INFANRIX) Unknown March 31, 2001 Admi nistered PRIVATE DTAP (INFANRIX) Unknown January 20, 2001 Ad ministered hib (history) Unknown Nov 17, 2001 Administered VFC BEXSERO (MEN B) IM Intramuscular Aug 25, 2019 Admi nistered GARDASIL (HPV-3 DOSE) IM Intramuscular May 20, 2015 Administered PRIVATE DTAP (INFANRIX) Unknown January 29, 2005 Ad ministered PRIVATE DTAP (INFANRIX) Unknown Aug 31, 2002 Admi nistered hib (history) Unknown March 31, 2001 Administered hib (history) Unknown January 20, 2001 Administered prevnar pcv 7 (history) Unknown Nov 17, 2001 Admi nistered SOCIAL HISTORY Sex Assigned At : Social History Observation Description Sex Assigned At Unknown Alcohol Screen (Audit-C) Question Answer Notes Did you have a drink containing alcohol in the p ast year? No Points 0 Interpretation Negative Sexual History Question Answer Notes Had sex in the past 12 months (vaginal, oral, or anal)? Yes Last menstrual period 05/02/2015 Have you ever had a Sexually transmitted disease ? No with Men only Tobacco use other than smoking: Question Answer Notes Are you an other tobacco user? Yes REASON FOR REFERRAL No Information VITAL SIGNS Height 65 in Aug, Weight 133.6 lbs Aug, Weight-kg 60.6 kg Aug, Temperature 98.6 degrees Fahrenheit Aug, Heart Rate 84 bpm Aug, Respiratory Rate 18 bpm Aug, Oximetry 99 % Aug, BMI 22.23 kg/m2 Aug, Blood pressure systolic 92 mmHg Aug, Blood pressure diastolic 62 mmHg Aug, MEDICATIONS Medication SIG (Take, Route, Frequency, Duration) Notes Start Date End Date Status Active PROCEDURES from 2000 to 2023-08-19 Procedure Date Ordered Date Performed Result Body Sit e NEXPLANON REMOVAL 2021-08-21 2021-08-21 N/A REASON FOR VISIT Nexplanon removal, HCG, Consent, KWADINO, RMA MEDICAL (GENERAL) HISTORY Type Description Date Medical History Iron deficiency anem ia, unspecified iron deficiency anemia type Medical History hemoglobin issues-bl ood transfusions, iron transfusions Medical History miscarriage Surgical History laproscopic cholecystectomy 05/02 021 Surgical History Galbladder removed 05/2021 Surgical History Receives blood transfusions reg ularly Hospitalization History Iron Deficiency Anemia 0 04/2018 Hospitalization History ER for B/P 12/26/19 19 Hospitalization History ER for b/p 12/27/19 19 Hospitalization History SX for lap choley Hospitalization History ER for excessive bleedin g 10/28/22 MENTAL STATUS No Information ASSESSMENTS Encounter Date Diagnosis Assessment Notes Treatment Notes Treatment Clinical Notes Aug, Nexplanon removal (ICD-10 - Z30.46) Aug, COVID-19 vaccination declined (ICD-10 - Z28.21) Discussed risks and benefits, she declines at this time. PLAN OF TREATMENT Treatment Notes Assessment Notes Clinical Notes COVID-19 vaccination declined Discussed risks and benefits, she declines at this time. Next Appt Details prn Reason: Insurance Providers Payer Name Payer Address Payer Phone Insured Name Patient Relationship to Insured Coverage Start Date Coverage End Date Subscriber Number Group Number [place] [id number] [address] [facility] [id number] Leny Galvez Self - patient is the insured [id number] [address] [facility] [address] Leny Galvez Self - patient is the insured [id number] [place] [address] [address] [facility] [id number] Leny Galvez Self - patient is the insured [id number]
--- OUTSIDE RECORDS SUMMARY | 2023-10-06 06:11 | XMS REPORT ---
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 159161588 Problem Syncope, unspecified syncope type R55 confirmed 293548444 Problem Nausea R11.0 confirmed 649384687 Problem Missed period N92.6 confirmed 241162 00 Problem Anxiety F41.9 confirmed 59457749 Problem Encounter for test, result unknown Z32.00 confirmed 380597456 Problem Iron deficiency anemia secondary to inadequate dietary iron intake D50.8 confirmed 707360088 Problem Irregular menstrual bleeding N92.6 confirmed 18086954 Problem History of iron deficiency anemia Z86.2 confirmed 355939173 Problem Iron deficiency anemia, unspecified iron deficiency anemia type D50.9 confirmed 74545532 ALLERGIES Allergen (clinical drug ingredient) Drug/Non Drug Allergy documented on EMR Reaction Allergy Type Onset Date Status penicillin V Penicillin V Potassium([facility] Code:[address]-04) Unknown Drug Allergy Active ENCOUNTERS from 2000 to 2023-07-25 Encounter Location Date Provider Diagnosis [facility] [address] [id number] [address] Aug, MARA LOVE Encounter for screening laboratory testing for COVID-19 virus Z11.59 and Encounter for laboratory test Z01.89 IMMUNIZATIONS Vaccine Route Administration Date Status hepatitis b pediatric (history) Unknown Nov 18 001 Administered hepatitis b pediatric (history) Unknown January 20, 2001 Administered hepatitis b pediatric (history) Unknown Nov 17 002 Administered PRIVATE GARDASIL 9 (HPV) IM Intramuscular May 15 6 Administered PRIVATE MENINGOCOCCAL (MENVEO) IM Intramuscular February 24, 2017 Administered hib (history) Unknown January 20, 2001 Administered hib (history) Unknown March 31, 2001 Administered hib (history) Unknown Nov 17, 2001 Administered PRIVATE DTAP (INFANRIX) Unknown January 20, 2001 Ad ministered PRIVATE FLULAVAL QUAD 0.5ML (6 MO AND UP) 2019 IM Intramuscular Aug 09, 2018 Administered VFC HEP A (PEDS/ADOLESCENT-2 DOSE) IM Intramuscular Oc 2018 Administered PRIVATE VARICELLA Unknown January 29, 2005 Administ ered GARDASIL (HPV-3 DOSE) IM Intramuscular May 20, 2015 Administered PRIVATE MMR Unknown January 29, 2005 Administered PRIVATE MMR Unknown Nov 17, 2001 Administered PRIVATE DTAP (INFANRIX) Unknown January 29, 2005 Ad ministered PRIVATE DTAP (INFANRIX) Unknown Aug 31, 2002 Admi nistered PRIVATE DTAP (INFANRIX) Unknown Nov 17, 2001 Admi nistered PRIVATE DTAP (INFANRIX) Unknown March 31, 2001 Admi nistered VFC FLULAVAL QUAD 0.5ML (6 M O AND UP) 2019 IM Intramuscular Aug 25, 2019 Administered PRIVATE POLIO (IPV) Unknown Nov 17, 2001 Administ ered PRIVATE POLIO (IPV) Unknown January 29, 2005 Admini stered prevnar pcv 7 (history) Unknown January 20, 2001 Ad ministered prevnar pcv 7 (history) Unknown March 31, 2001 Admi nistered VFC BEXSERO (MEN B) IM Intramuscular Aug 25, 2019 Admi nistered PRIVATE VARICELLA Unknown January 27, 2007 Administ ered PRIVATE POLIO (IPV) Unknown January 20, 2001 Admini stered PRIVATE POLIO (IPV) Unknown March 31, 2001 Administ ered prevnar pcv 7 (history) Unknown Nov 17, 2001 Admi nistered PRIVATE TDAP (ADACEL) Unknown Jun 27, 2014 Admini stered PRIVATE MENINGOCOCCAL (MENVEO) IM Intramuscular May 20, 2015 Administered SOCIAL HISTORY Sex Assigned At : Social [...] user? Yes REASON FOR REFERRAL No Information MEDICATIONS Medication SIG (Take, Route, Frequency, Duration) Notes Start Date End Date Status Active REASON FOR VISIT testing for [place], no vaxx--jean marie mix MEDICAL (GENERAL) HISTORY Type Description Date Medical History Iron deficiency anem ia, unspecified iron deficiency anemia type Medical History hemoglobin issues-bl ood transfusions, iron transfusions Medical History miscarriage Surgical History laproscopic cholecystectomy 05/02 Surgical History Galbladder removed 05/2021 Surgical History Receives blood transfusions reg ularly Hospitalization History Iron Deficiency Anemia 0 04/2018 Hospitalization History ER for B/P 12/26/19 19 Hospitalization History ER for b/p 12/27/19 19 Hospitalization History SX for lap choley Hospitalization History ER for excessive bleedin g 10/28/22 MENTAL STATUS No Information ASSESSMENTS Encounter Date Diagnosis Assessment Notes Treatment Notes Treatment Clinical Notes Aug, Encounter for screening laboratory testing for COVID-19 virus (ICD-10 - Z11.59) Aug, Encounter for laboratory test (ICD-10 - Z01.89) Aug, Other Patient was instructed to self-isolate at home until further instruction from clinic staff Patient was instructed to self-isolate at home until further instruction from clinic staff PLAN OF TREATMENT No Information Insurance Providers Payer Name Payer Address Payer Phone Insured Name Patient Relationship to Insured Coverage Start Date Coverage End Date Subscriber Number Group Number [facility] [address] [facility] [address] [phone] Leny Galvez Self - patient is the insured [id number] [address] [employer] [facility] [address] Leny Galvez Self - patient is the insured [id number] NON [facility] [address] [facility] [address] Leny Galvez Self - patient is the insured [id number]
--- OUTSIDE RECORDS SUMMARY | 2023-10-06 06:11 | XMS REPORT ---
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 039051766 Problem Syncope, unspecified syncope type R55 confirmed 668639371 Problem Nausea R11.0 confirmed 791157907 Problem Missed period N92.6 confirmed 284885 00 Problem Anxiety F41.9 confirmed 70786798 Problem Encounter for test, result unknown Z32.00 confirmed 953306167 Problem Iron deficiency anemia secondary to inadequate dietary iron intake D50.8 confirmed 529662352 Problem Irregular menstrual bleeding N92.6 confirmed 42565419 Problem History of iron deficiency anemia Z86.2 confirmed 984238347 Problem Iron deficiency anemia, unspecified iron deficiency anemia type D50.9 confirmed 91951658 ALLERGIES Allergen (clinical drug ingredient) Drug/Non Drug Allergy documented on EMR Reaction Allergy Type Onset Date Status penicillin V Penicillin V Potassium([facility][NOTE 2] Code:[address]-92) Unknown Drug Allergy Active ENCOUNTERS from 2000 to 2023-05-15 Encounter Location Date Provider Diagnosis [facility] [address] [facility] [id number] [address] Jun, BERTRAND GABRIEL Sore throat J02.9 ; Non-intractable vomiting with nausea, unspecified vomiting type R11.2 and COVID-19 U07.1 IMMUNIZATIONS Vaccine Route Administration Date Status PRIVATE POLIO (IPV) Unknown Nov 17, 2001 Administ ered PRIVATE POLIO (IPV) Unknown March 31, 2001 Administ ered PRIVATE POLIO (IPV) Unknown January 20, 2001 Admini stered PRIVATE DTAP (INFANRIX) Unknown January 29, 2005 Ad ministered PRIVATE FLULAVAL QUAD 0.5ML (6 MO AND UP) 2019 IM Intramuscular Aug 09, 2018 Administered hepatitis b pediatric (history) Unknown Nov 17 002 Administered hepatitis b pediatric (history) Unknown January 20, 2001 Administered hepatitis b pediatric (history) Unknown Nov 18 001 Administered VFC BEXSERO (MEN B) IM Intramuscular Aug 25, 2019 Admi nistered PRIVATE DTAP (INFANRIX) Unknown Aug 31, 2002 Admi nistered PRIVATE DTAP (INFANRIX) Unknown Nov 17, 2001 Admi nistered PRIVATE MENINGOCOCCAL (MENVEO) IM Intramuscular May 20, 2015 Administered PRIVATE MENINGOCOCCAL (MENVEO) IM Intramuscular February 24, 2017 Administered hib (history) Unknown January 20, 2001 Administered hib (history) Unknown March 31, 2001 Administered hib (history) Unknown Nov 17, 2001 Administered PRIVATE GARDASIL 9 (HPV) IM Intramuscular May 15 6 Administered VFC HEP A (PEDS/ADOLESCENT-2 DOSE) IM Intramuscular Oc 2018 Administered VFC FLULAVAL QUAD 0.5ML (6 M O AND UP) 2019 IM Intramuscular Aug 25, 2019 Administered PRIVATE DTAP (INFANRIX) Unknown March 31, 2001 Admi nistered prevnar pcv 7 (history) Unknown January 20, 2001 Ad ministered PRIVATE POLIO (IPV) Unknown January 29, 2005 Admini stered PRIVATE VARICELLA Unknown January 27, 2007 Administ ered PRIVATE VARICELLA Unknown January 29, 2005 Administ ered PRIVATE DTAP (INFANRIX) Unknown January 20, 2001 Ad ministered PRIVATE TDAP (ADACEL) Unknown Jun 27, 2014 Admini stered prevnar pcv 7 (history) Unknown Nov 17, 2001 Admi nistered prevnar pcv 7 (history) Unknown March 31, 2001 Admi nistered GARDASIL (HPV-3 DOSE) IM Intramuscular May 20, 2015 Administered PRIVATE MMR Unknown January 29, 2005 Administered PRIVATE MMR Unknown Nov 17, 2001 Administered SOCIAL HISTORY Sex Assigned At : [...] No Information VITAL SIGNS Height 65 in Jun, Weight 126 lbs Jun, Weight-kg 57.15 kg Jun, Temperature 97.0 degrees Fahrenheit Jun, Heart Rate 100 bpm Jun, Respiratory Rate 20 bpm Jun, Oximetry 98 % Jun, BMI 20.97 kg/m2 Jun, Blood pressure systolic 118 mmHg Jun, Blood pressure diastolic 70 mmHg Jun, MEDICATIONS Medication SIG (Take, Route, Frequency, Duration) Notes Start Date End Date Status Active REASON FOR VISIT states she had her gallbladder removed and she is having Fever , Nausea, Vomiting, sore throat , cough , running nose -- audie lackey MEDICAL (GENERAL) HISTORY Type Description Date Medical [...] Assessment Notes Treatment Notes Treatment Clinical Notes Jun, Sore throat (ICD-10 - J02.9) Jun, Non-intractable vomiting with nausea, unspecified vomiting type (ICD-10 - R11.2) Nausea and Vomiting: Care Instructions material was published Jun, COVID-19 (ICD-10 - U07.1) Coronavirus (COVID-19): Care Instructions material was published 03 Aug, 2021 Other Medications as directed, promote/support rest as able, push fluids to maintain hydration. Office visit if not improving. Your cold symptoms are cause by a virus, which means that antibiotics will not help with these symptoms. The following interventions may help you to feel better while their immune system is fighting the infection: For infants, use nasal saline drops and bulb suction of the nose as needed for cough or congestion. It is especially helpful to do this prior to feedings. For toddlers and older children, nasal saline sprays or rinses can be helpful. Cough and cold medications have not been found to be either safe or effective in children under 4 or even 6 years of age. However, a spoon-full of honey has been shown to be effective at reducing cough in children. Honey should not be given to children under 1 year of age. Other remedies that can be helpful include use of Vicks' Vapor-rub or generic equivalent, cool-mist humidifier (warm vaporizer can also be effective, but must take precautions to avoid merida/scalding from steam / hot water), and elevating your child's head while sleeping (but avoid use of pillows or sleep positioners in infants due to risk for SIDS). For older children, OTC cough and cold preparations might be helpful, but make sure to inspect the ingredients list on the package, and do not give more than one OTC medication if using any "multi-symptom" medication, especially if the medication includes a pain-reliever or fever-medical office asst. Call your medical provider or return to clinic if your child's symptoms do not start to improve after 7 to 10 days from onset of illness, for fever that starts after the third day of illness or persists for more than 2 days, or for worsening or new symptoms. If your child develops wheezing or is working hard to breathe, they should be taken to the closest hospital Emergency Department. PLAN OF TREATMENT Treatment Notes Assessment Notes Clinical Notes Non-intractable vomiting wit h nausea, unspecified vomiting type Nausea and Vomiting: Care Instructions material was published COVID-19 Coronavirus (COVID-1 9): Care Instructions material was published Next Appt Details as needed or reg fu with carlos p Reason: Provider Name:REMY LIU, 2023-06-03 03:00:00 PM, [address] [facility], [id number], [place], [id number], Insurance Providers Payer Name Payer Address Payer Phone Insured Name Patient Relationship to Insured Coverage Start Date Coverage End Date Subscriber Number Group Number NON [place] [id number] [address] [facility] [address] Leny Galvez Self - patient is the insured [id number] [address] [facility] [address] Leny Galvez Self - patient is the insured [id number] [facility] 19 [address] [facility] [address] Leny Galvez Self - patient is the insured [id number]
[2023-10-06] MEDS ORDERED: LACTATED RINGERS 1,000 ML 500 ML IV PRN (06:15)
[2023-10-06] MEDS ORDERED: LIDOCAINE 2% w/EPI 1:200,000 20 ML VIAL INJ PRN (06:15)
[2023-10-06] MEDS ORDERED: MINERAL OIL 30 ML UDC TOP PRN (06:15)
[2023-10-06 06:41] LABS: BASOPHILS % (AUTO) 0 % (0-10); EOSINOPHILS # (AUTO) 0.1 10^3/uL (0.0-0.3); EOSINOPHILS % (AUTO) 1 % (0-10); HEMATOCRIT 36 % (35-52); LYMPHOCYTES % (AUTO) 26 % (12-44); MEAN CORPUSCULAR HEMOGLOBIN 32 pg (25-34); MEAN CORPUSCULAR HGB CONC 33 g/dL (32-36); MEAN CORPUSCULAR VOLUME 96 fL (80-99); MEAN PLATELET VOLUME 10.2 fL (9.0-12.2); MONOCYTES # (AUTO) 0.6 10^3/uL (0.0-1.0); MONOCYTES % (AUTO) 7 % (0-12); NEUTROPHILS % (AUTO) 65 % (42-75); PLATELET COUNT 214 10^3/uL (130-400); WHITE BLOOD COUNT 7.7 10^3/uL (4.3-11.0)
--- NOTE | 2023-10-06 07:53 | History & Physical-OB ---
OB - Chief Complaint & HPI Date/Time Date of Admission: Date of Admission: Oct 06, 2023 at 06:00 Date seen by a Provider: Oct 06, 2023 Time Seen by a Provider: 07:50 Chief Complaint/History OB-Reason for Admission/Chief: Induction of Labor Hx : 2 Hx Para: 0 Expected Date of Delivery: Oct 20, 2023 Gestational Age in Weeks: 38 Gestational Age in Days: 1 Indication for induction: medical complication Admission Nurse Assessment Rev: Yes History of Labs A neg Antibody neg GBS neg Allergies and Home Medications Allergies Coded Allergies: Penicillins (Verified Allergy, Unknown, 04/18/23) Patient Home Medication List Home Medication List Reviewed: Yes No Active Prescriptions or Reported Meds OB - History Hx of Present Care: Yes Ultrasounds: Normal mid trimester US Obstetrical Complications: Pre-eclampsia Medical Complications: None Delivery History Hx Blood Disorders: No Adverse Rxn to Tranfusion: No Patient Past Medical History nc Social History/Family History 2nd Hand Smoke Exposure: No Immunizations First/Initial COVID19 Vaccine: 04/01/2021 Second COVID19 Vaccination: 04/01/2021 Third COVID19 Vaccination Date: 04/01/2021 Tetanus Booster (TDap): Less than 5yrs Date of Pneumonia Vaccine: Apr 25, 2001 OB - Admission Exam Physical Exam HEENT: NCAT Heart: Rhythm Normal Lungs: Clear Abdomen: Gravid Extremities: Normal Reflexes: Normal Cervical Dilatation: 3cm Effacement: 75% Station: -1 Membranes: Intact Heart Rate: 130's Accelerations: Accelerations Present Decelerations: No Decelerations Short Term Variability: Present Electric Motors Salesperson Variability: Average (6-25) Contractions on Admission: 6-10 Minutes Apart Intensity: Mild Labs Laboratory Tests Test 10/06/23 06:35 Range/Units White Blood Count 7.7 4.3-11.0 10^3/uL Red Blood Count 3.78 L 3.80-5.11 10^6/uL Hemoglobin 12.0 11.5-16.0 g/dL Hematocrit 36 35-52 % Mean Corpuscular Volume 96 80-99 fL Mean Corpuscular Hemoglobin 32 25-34 pg Mean Corpuscular Hemoglobin Concent 33 32-36 g/dL Red Cell Distribution Width 12.6 10.0-14.5 % Platelet Count 214 130-400 10^3/uL Mean Platelet Volume 10.2 9.0-12.2 fL Immature Granulocyte % (Auto) 0 % Neutrophils (%) (Auto) 65 42-75 % Lymphocytes (%) (Auto) 26 12-44 % Monocytes (%) (Auto) 7 0-12 % Eosinophils (%) (Auto) 1 0-10 % Basophils (%) (Auto) 0 0-10 % Neutrophils # (Auto) 5.0 1.8-7.8 10^3/uL Lymphocytes # (Auto) 2.0 1.0-4.0 10^3/uL Monocytes # (Auto) 0.6 0.0-1.0 10^3/uL Eosinophils # (Auto) 0.1 0.0-0.3 10^3/uL Basophils # (Auto) 0.0 0.0-0.1 10^3/uL Immature Granulocyte # (Auto) 0.0 0.0-0.1 10^3/uL Syphilis Total Antibody Negative Negative OB - Assessment/Plan/Diagnosis Assessment Assessment: induction of labor Admission Dx 22 yo @ 38.1 Preeclampsia GBS neg Admission Status: Inpatient Order (span 2 midnights) Reason for Inpatient Admission: IOL at 38 weeks REGINA PALMER DO Oct 06, 2023 07:53
[2023-10-06] MEDS: D5 LR 1,000 ML IV SOLN 1,000 ML IV SCH ×3 (08:12→23:58)
[2023-10-06] MEDS ORDERED: OXYTOCIN DRIP PRE-MIX 500 ML IV SCH (08:45)
[2023-10-06] MEDS ORDERED: LACTATED RINGERS 1,000 ML 1,000 ML IV ONE (09:22)
[2023-10-06] MEDS ORDERED: fentaNYL 2 mcg/ml BUPIVA 0.125 100 ML ONE (09:22)
[2023-10-06] MEDS ORDERED: fentaNYL INJECTION 100 MCG/2 ML VIAL ONE (09:42)
[2023-10-06] MEDS ORDERED: BUPIVACAINE 0.25% 10 ML VIAL ONE (09:43)
[2023-10-06] MEDS: fentaNYL 2 mcg/ml BUPIVA 0.125 100 ML EPI SCH ×2 (10:13→18:29)
[2023-10-06] MEDS ORDERED: ONDANSETRON INJECTION 4 MG/2 ML (SDV) IV PRN (10:30)
[2023-10-06] MEDS ORDERED: diphenhydrAMINE INJ 50 MG/ML VIAL IV PRN (10:30)
[2023-10-06] MEDS ORDERED: LACTATED RINGERS 1,000 ML 1,000 ML IV SCH (10:30)
[2023-10-06] MEDS ORDERED: NALOXONE 0.4 MG/ML 1 ML VIAL IV PRN ×2 (10:30→23:15)
[2023-10-06] MEDS ORDERED: CATHETER FLUSH 10 ML SYR IV SCH (14:00)
--- NOTE | 2023-10-06 23:09 | OB Labor & Delivery Record ---
L&D History Date of Service Date of Service: Oct 06, 2023 History Expected Date of Delivery: Oct 20, 2023 Gestational Age in Weeks: 38 Hx : 2 Hx Para: 0 Complications Events: Pre-Eclampsia Operative Indications (Cesarea: N/A-Vaginal Delivery Intrapartal Events: None L&D Stage1 Stage One Onset of Labor - Date: Oct 06, 2023 Monitors and Tracing Monitor Mode: External Heart Rate: 135 Monitor Accelerations: Uniform Monitor Decelerations: None Station: +1 Lamination Machine Operator Variability: Average (6-10) Short Term Variability: Present Presentation: Vertex Vital Signs VS - Last 72 Hours, by Label 10/06/23 10/06/23 10/06/23 10/06/23 07:06 07:21 07:37 07:51 Pulse 67 76 85 68 Resp 18 18 18 18 B/P (MAP) 127/81 (96) 122/89 (100) 130/93 (105) 126/83 (97) O2 Delivery Room Air Room Air Room Air Room Air 10/06/23 10/06/23 10/06/23 10/06/23 08:06 08:16 08:19 08:23 Temp 37.1 37.1 Pulse 78 76 75 63 Resp 18 18 18 18 B/P (MAP) 136/73 (94) 128/93 (105) 137/86 (103) Pulse Ox 99 100 O2 Delivery Room Air Room Air Room Air Room Air 10/06/23 10/06/23 10/06/23 10/06/23 08:37 08:51 09:06 09:21 Pulse 77 82 83 74 Resp 18 18 18 18 B/P (MAP) 146/98 (114) 146/101 (116) 144/91 (108) 144/84 (104) O2 Delivery Room Air Room Air Room Air Room Air 10/06/23 10/06/23 10/06/23 10/06/23 09:37 09:50 09:53 09:55 Pulse 95 79 73 89 Resp 18 18 18 18 B/P (MAP) 156/108 (124) 163/95 (117) 134/88 (103) 135/93 (107) Pulse Ox 99 99 O2 Delivery Room Air Room Air Room Air Room Air 10/06/23 10/06/23 10/06/23 10/06/23 10:00 10:03 10:06 10:09 Pulse 91 77 87 82 Resp 18 18 18 18 B/P (MAP) 141/95 (110) 130/87 (101) 134/91 (105) 133/90 (104) Pulse Ox 99 99 98 O2 Delivery Room Air Room Air Room Air Room Air 10/06/23 10/06/23 10/06/23 10/06/23 10:11 10:14 10:17 10:23 Pulse 100 117 79 93 Resp 18 18 18 18 B/P (MAP) 132/90 (104) 128/84 (99) 95/54 (68) 167/85 (112) Pulse Ox 98 97 98 94 O2 Delivery Room Air Room Air Room Air Room Air 10/06/23 10/06/23 10/06/23 10/06/23 10:27 10:29 10:35 10:38 Pulse 100 83 97 113 Resp 18 18 18 18 B/P (MAP) 136/80 (98) 141/84 (103) 135/83 (100) 140/74 (96) Pulse Ox 100 99 100 100 O2 Delivery Room Air Room Air Room Air Room Air 10/06/23 10/06/23 10/06/23 10/06/23 10:41 10:44 10:50 10:53 Pulse 82 80 89 Resp 18 18 18 18 B/P (MAP) 150/73 (98) 144/80 (101) 141/82 (101) 141/85 (103) Pulse Ox 100 100 100 100 O2 Delivery Room Air Room Air Room Air Room Air 10/06/23 10/06/23 10/06/23 10/06/23 10:56 10:59 11:15 11:30 Temp 36.9 Pulse 85 99 102 96 Resp 18 18 18 18 B/P (MAP) 134/85 (101) 142/92 (109) 136/91 (106) 131/87 (102) Pulse Ox 100 100 99 99 O2 Delivery Room Air Room Air Room Air Room Air 10/06/23 10/06/23 10/06/23 10/06/23 11:45 12:01 12:17 12:30 Pulse 82 103 80 81 Resp 18 18 18 18 B/P (MAP) 127/81 (96) 140/90 (107) 153/84 (107) 135/74 (94) Pulse Ox 100 100 100 100 O2 Delivery Room Air Room Air Room Air Room Air 10/06/23 10/06/23 10/06/23 10/06/23 12:46 13:01 13:10 13:14 Temp 36.1 Pulse 87 87 79 Resp 18 18 18 B/P (MAP) 149/94 (112) 138/92 (107) 136/84 (101) Pulse Ox 100 100 100 O2 Delivery Room Air Room Air Room Air 10/06/23 10/06/23 10/06/23 10/06/23 13:30 13:47 14:00 14:12 Temp 36.5 Pulse 74 71 68 Resp 18 18 18 B/P (MAP) 134/78 (96) 122/67 (85) 125/73 (90) Pulse Ox 100 100 100 O2 Delivery Room Air Room Air Room Air 10/06/23 10/06/23 10/06/23 10/06/23 14:17 14:31 14:47 15:01 Pulse 74 65 75 89 Resp 18 18 18 18 B/P (MAP) 150/86 (107) 129/77 (94) 136/92 (107) 147/82 (103) Pulse Ox 100 100 100 100 O2 Delivery Room Air Room Air Room Air Room Air 10/06/23 10/06/23 10/06/23 10/06/23 15:08 15:15 15:31 15:45 Temp 36.9 Pulse 84 78 72 Resp 18 18 18 B/P (MAP) 147/86 (106) 151/78 (102) 144/85 (104) Pulse Ox 100 100 100 O2 Delivery Room Air Room Air Room Air 10/06/23 10/06/23 10/06/23 10/06/23 16:01 16:16 16:22 16:45 Temp 37.5 Pulse 70 105 86 Resp 18 18 18 B/P (MAP) 137/93 (108) 140/76 (97) 143/84 (103) Pulse Ox 99 100 100 O2 Delivery Room Air Room Air Room Air 10/06/23 10/06/23 10/06/23 10/06/23 17:00 17:15 17:32 17:41 Temp 37.3 Pulse 96 96 93 91 Resp 18 18 18 18 B/P (MAP) 147/95 (112) 145/90 (108) 167/97 (120) 161/91 (114) Pulse Ox 99 97 100 100 O2 Delivery Room Air Room Air Room Air Room Air 10/06/23 10/06/23 10/06/23 10/06/23 17:47 18:01 18:30 18:45 Temp 37.5 Pulse 82 88 81 85 Resp 18 18 18 18 B/P (MAP) 147/89 (108) 138/91 (107) 137/75 (95) 144/85 (104) Pulse Ox 100 100 99 100 O2 Delivery Room Air Room Air Room Air Room Air 10/06/23 10/06/23 10/06/23 10/06/23 19:00 19:17 19:31 19:46 Pulse 91 87 83 109 Resp 18 20 B/P (MAP) 137/82 (100) 135/88 (104) 150/97 (114) 161/95 (117) Pulse Ox 98 100 O2 Delivery Room Air Room Air 10/06/23 10/06/23 10/06/23 20:03 20:15 20:30 Pulse 72 73 86 B/P (MAP) 118/67 (84) 112/65 (81) 112/70 (84) Rupture of Membranes Spontaneous Ruture of Membrane: No Amniotic Membrane Rupture Time: 0830 Amniotic Membrane Fluid Desc.: Clear Vaginal Bleeding Description: Normal Show Induction/Anesthesia Epidural Cath Placement - Time: 1003 Progress/Notes Patient admitted for IOL due to Mild PreE > 37 weeks. AROM was performed at admission, and pitocin augmentation followed. She had an epidural placed after and progressed on max dose of pitocin 8 mu to complete and + 2 station L&D Stage2 Stage Two Stage II Date: Oct 06, 2023 Monitors and Tracing Monitor Mode: External Heart Rate: 135 Monitor Accelerations: Uniform Monitor Decelerations: Variable Lamination Machine Operator Variability: Average (6-10) Short Term Variability: Present Position: Right Occiput Anterior Presentation: Vertex Cord Descript/Complications Cord Vessel Description: 3 Vessels Delivery Type Infant Delivery Method: Spontaneous Vaginal Anterior Shoulder: Right Episiotomy/Perineal Laceration Laceraction(s)/Extensions: Yes Episiotomy Description: Midline Degree (describe repair) midline episiotomy repaired using 3-0 rapide and 2-0 vicryl suture in usual fashion. Condition of Delivery 1 minute Comment: 9 5 minute Comment: 9 Notes Live male infant weight 6lbs 1 oz Condition of Condition of Infant: Living Exam: No Observed Abnormalities Resuscitation Resuscitation: N/A - Spontaneous Resp L&D Stage3 Stage Three Stage III Date: Oct 06, 2023 Pictocin Pitocin Administration mu/min: 8 Pitocin ml/hr: 8 Pitocin Administration Comment: 30 mu wide open after delivery of placenta Placenta Delivery Placenta Delivery: Spontaneous Delivery Summary Summary Estimated blood loss (mL): 350 Attending at delivery: Regina Palmer DO Condition of Delivery Examined: Cervix Examined, Uterus Explored Post Hemorrhage: No Condition of Mother stable Condition of Infant (s) stable REGINA PALMER DO Oct 06, 2023 23:09
[2023-10-06] MEDS ORDERED: Tetanus/Diphtheria/Pertussis (Acell) ADULT Vaccine 0.5 ML IM ONE (23:15)
[2023-10-06] MEDS ORDERED: MEASLES, MUMPS, RUBELLA VACCINE (MMR) SQ ONE (23:15)
[2023-10-06] MEDS ORDERED: BENZOCAINE/MENTHOL (DERMOPLAST) 56 ML CAN TP PRN (23:15)
[2023-10-06] MEDS ORDERED: WITCH HAZEL(TUCKS) 40 EA JAR TOP PRN (23:15)
[2023-10-06] MEDS ORDERED: DIBUCAINE 1% OINTMENT 28 GM TUBE TOP PRN (23:15)
[2023-10-06] MEDS: OXYTOCIN DRIP PRE-MIX 500 ML IV SCH ×2 (23:27→23:28)
[2023-10-07] VITALS (25 sets, daily range): BP systolic 105–145; BP diastolic 59–93
[2023-10-07] MEDS: IBUPROFEN 600 MG TABLET PO SCH ×3 (01:07→16:10)
[2023-10-07] MEDS: ACETAMINOPHEN 500 MG TABLET PO SCH ×3 (01:07→21:54)
[2023-10-07] MEDS ORDERED: CATHETER FLUSH 10 ML SYR IV SCH (06:00)
[2023-10-07 06:19] LABS: HEMOGLOBIN 10.1 g/dL (11.5-16.0); MEAN CORPUSCULAR VOLUME 98 fL (80-99); MONOCYTES % (AUTO) 7 % (0-12); NEUTROPHILS % (AUTO) 77 % (42-75)
[2023-10-07 06:21] LABS: BASOPHILS % (AUTO) 0 % (0-10); EOSINOPHILS % (AUTO) 0 % (0-10); HEMATOCRIT 31 % (35-52); LYMPHOCYTES # (AUTO) 1.7 10^3/uL (1.0-4.0); LYMPHOCYTES % (AUTO) 14 % (12-44); MEAN CORPUSCULAR HEMOGLOBIN 32 pg (25-34); MEAN CORPUSCULAR HGB CONC 32 g/dL (32-36); MEAN PLATELET VOLUME 10.9 fL (9.0-12.2); MONOCYTES # (AUTO) 0.9 10^3/uL (0.0-1.0); NEUTROPHILS # (AUTO) 9.2 10^3/uL (1.8-7.8); PLATELET COUNT 141 10^3/uL (130-400); WHITE BLOOD COUNT 11.9 10^3/uL (4.3-11.0)
[2023-10-07 06:23] LABS: SMEAR SCAN COMMENT YES
--- NOTE | 2023-10-07 07:20 | Postpartum Progress Note ---
Note Note Day # 1 Subjective: Patient is without complaints. Ambulating, voiding. Tolerating a regular diet without nausea or vomiting. Normal lochia. Pain is well controlled with oral pain medications. Objective: Physical Exam: General - Alert and oriented, no apparent distress Abdomen - Soft, appropriately tender to palpation, non-distended, fundus firm at umbilicus Extremities - no edema, negative Gary's bilaterally Assessment: PPD 1 NVD Acute blood loss anemia Mild PreE, now PP Plan: Routine care. Encourage breast feeding. Encourage ambulation. Ferrous sulfate supplementation. Plan for discharge tomorrow Vitals - Labs Vital Signs - I&O Vital Signs Date Time Temp Pulse Resp B/P (MAP) Pulse Ox O2 Delivery O2 Flow Rate FiO2 10/07/23 06:23 36.5 89 20 145/78 (100) 98 Room Air 10/07/23 03:22 36.7 99 18 126/69 (88) 97 Room Air 10/07/23 01:01 96 138/90 (106) 10/07/23 00:29 88 133/75 (94) 10/07/23 00:15 82 130/75 (93) 10/07/23 00:00 81 137/83 (101) 10/06/23 23:45 89 131/84 (100) 10/06/23 23:33 94 129/83 (98) 10/06/23 22:59 122 145/63 (90) 10/06/23 22:53 112 147/58 (87) 10/06/23 22:46 118 158/107 (124) 10/06/23 22:30 98 147/80 (102) 10/06/23 22:16 104 137/87 (104) 10/06/23 22:00 75 132/82 (99) 10/06/23 21:45 83 135/83 (100) 10/06/23 21:31 90 134/92 (106) 10/06/23 21:15 115 121/95 (104) 10/06/23 21:02 82 133/68 (89) 10/06/23 20:45 36.3 86 135/89 (104) 10/06/23 20:30 86 112/70 (84) 10/06/23 20:15 73 112/65 (81) 10/06/23 20:03 72 118/67 (84) 10/06/23 19:46 109 161/95 (117) 10/06/23 19:31 83 150/97 (114) 10/06/23 19:17 87 20 135/88 (104) 100 Room Air 10/06/23 19:00 91 18 137/82 (100) 98 Room Air 10/06/23 18:45 85 18 144/85 (104) 100 Room Air 10/06/23 18:30 37.5 81 18 137/75 (95) 99 Room Air 10/06/23 18:01 88 18 138/91 (107) 100 Room Air 10/06/23 17:47 82 18 147/89 (108) 100 Room Air 10/06/23 17:41 37.3 91 18 161/91 (114) 100 Room Air 10/06/23 17:32 93 18 167/97 (120) 100 Room Air 10/06/23 17:15 96 18 145/90 (108) 97 Room Air 10/06/23 17:00 96 18 147/95 (112) 99 Room Air 10/06/23 16:45 86 18 143/84 (103) 100 Room Air 10/06/23 16:22 37.5 10/06/23 16:16 105 18 140/76 (97) 100 Room Air 10/06/23 16:01 70 18 137/93 (108) 99 Room Air 10/06/23 15:45 72 18 144/85 (104) 100 Room Air 10/06/23 15:31 78 18 151/78 (102) 100 Room Air 10/06/23 15:15 84 18 147/86 (106) 100 Room Air 10/06/23 15:08 36.9 10/06/23 15:01 89 18 147/82 (103) 100 Room Air 10/06/23 14:47 75 18 136/92 (107) 100 Room Air 10/06/23 14:31 65 18 129/77 (94) 100 Room Air 10/06/23 14:17 74 18 150/86 (107) 100 Room Air 10/06/23 14:12 36.5 10/06/23 14:00 68 18 125/73 (90) 100 Room Air 10/06/23 13:47 71 18 122/67 (85) 100 Room Air 10/06/23 13:30 74 18 134/78 (96) 100 Room Air 10/06/23 13:14 79 18 136/84 (101) 100 Room Air 10/06/23 13:10 36.1 10/06/23 13:01 87 18 138/92 (107) 100 Room Air 10/06/23 12:46 87 18 149/94 (112) 100 Room Air 10/06/23 12:30 81 18 135/74 (94) 100 Room Air 10/06/23 12:17 80 18 153/84 (107) 100 Room Air 10/06/23 12:01 103 18 140/90 (107) 100 Room Air 10/06/23 11:45 82 18 127/81 (96) 100 Room Air 10/06/23 11:30 96 18 131/87 (102) 99 Room Air 10/06/23 11:15 102 18 136/91 (106) 99 Room Air 10/06/23 10:59 36.9 99 18 142/92 (109) 100 Room Air 10/06/23 10:56 85 18 134/85 (101) 100 Room Air 10/06/23 10:53 89 18 141/85 (103) 100 Room Air 10/06/23 10:50 80 18 141/82 (101) 100 Room Air 10/06/23 10:44 18 144/80 (101) 100 Room Air 10/06/23 10:41 82 18 150/73 (98) 100 Room Air 10/06/23 10:38 113 18 140/74 (96) 100 Room Air 10/06/23 10:35 97 18 135/83 (100) 100 Room Air 10/06/23 10:29 83 18 141/84 (103) 99 Room Air 10/06/23 10:27 100 18 136/80 (98) 100 Room Air 10/06/23 10:23 93 18 167/85 (112) 94 Room Air 10/06/23 10:17 79 18 95/54 (68) 98 Room Air 10/06/23 10:14 117 18 128/84 (99) 97 Room Air 10/06/23 10:11 100 18 132/90 (104) 98 Room Air 10/06/23 10:09 82 18 133/90 (104) Room Air 10/06/23 10:06 87 18 134/91 (105) 98 Room Air 10/06/23 10:03 77 18 130/87 (101) 99 Room Air 10/06/23 10:00 91 18 141/95 (110) 99 Room Air 10/06/23 09:55 89 18 135/93 (107) 99 Room Air 10/06/23 09:53 73 18 134/88 (103) Room Air 10/06/23 09:50 79 18 163/95 (117) 99 Room Air 10/06/23 09:37 95 18 156/108 (124) Room Air 10/06/23 09:21 74 18 144/84 (104) Room Air 10/06/23 09:06 83 18 144/91 (108) Room Air 10/06/23 08:51 82 18 146/101 (116) Room Air 10/06/23 08:37 77 18 146/98 (114) Room Air 10/06/23 08:23 63 18 137/86 (103) Room Air 10/06/23 08:19 37.1 75 18 128/93 (105) 100 Room Air 10/06/23 08:16 37.1 76 18 99 Room Air 10/06/23 08:06 78 18 136/73 (94) Room Air 10/06/23 07:51 68 18 126/83 (97) Room Air 10/06/23 07:37 85 18 130/93 (105) Room Air 10/06/23 07:21 76 18 122/89 (100) Room Air I & O 10/07/23 06:59 Intake Total 4124 ml Balance 4124 ml Labs Laboratory Tests 10/07/23 06:08: White Blood Count 11.9H, Red Blood Count 3.17L, Hemoglobin 10.1L, Hematocrit 31L , Mean Corpuscular Volume 98, Mean Corpuscular Hemoglobin 32, Mean Corpuscular Hemoglobin Concent 32, Red Cell Distribution Width 12.6, Platelet Count 141, Mean Platelet Volume 10.9, Immature Granulocyte % (Auto) 1, Neutrophils (%) (Auto) 77H, Lymphocytes (%) (Auto) 14, Monocytes (%) (Auto) 7, Eosinophils (%) (Auto) 0, Basophils (%) (Auto) 0, Neutrophils # (Auto) 9.2H, Lymphocytes # (Auto) 1.7, Monocytes # (Auto) 0.9, Eosinophils # (Auto) 0.0, Basophils # (Auto) 0.0, Immature Granulocyte # (Auto) 0.1, Percent Immature Platelet Fraction 4.4, Smear Scan YES REGINA PALMER DO Oct 07, 2023 07:19
--- NOTE | 2023-10-07 07:21 | Discharge Inst-Women's Service ---
Discharge Inst-Women's Serv Depart Medication/Instructions New, Converted or Re-Newed RX: Transmitted to Pharmacy Final Diagnosis PPD 2 NVD, Acute blood loss anemia Problems Reviewed?: Yes Consults/Follow Up Additional Follow Up: Yes Orders/Referrals Dr. Palmer in 6 weeks Activity Activity: Activity as Tolerated Driving Instructions: No Driving for 1 Week NO SMOKING: NO SMOKING Nothing Inside Vagina: No Douching, No [place], No Tampons Diet Discharge Diet: No Restrictions Symptoms to Report to : Bleeding Excessive, Pain Increased, Fever Over 101 Degrees F, Vaginal Bleeding Increase, Questions/Concerns For Any Problems or Questions: Contact Your Physician RGEINA PALMER DO Oct 07, 2023 07:21
[2023-10-07] MEDS ORDERED: DOCU100C37 PO (07:22)
[2023-10-07] MEDS ORDERED: BENZ78AE5 TP (07:22)
[2023-10-07] MEDS ORDERED: ACET-93 PO (07:22)
[2023-10-07] MEDS ORDERED: LABE200T10 PO (07:22)
[2023-10-07] MEDS ORDERED: DIBU30OI TOP (07:22)
[2023-10-07] MEDS ORDERED: FERR325T24 PO (07:22)
[2023-10-07] MEDS ORDERED: IBUP-844 PO (07:22)
[2023-10-07] MEDS: FERROUS SULFATE 325 MG (IRON) TABLET PO SCH (08:30)
[2023-10-07] MEDS: PRENATAL VITAMIN TABLET PO SCH (08:30)
[2023-10-07] MEDS: DOCUSATE SODIUM 100 MG CAPSULE PO SCH ×2 (08:30→21:55)
[2023-10-07] MEDS: LABETALOL 200 MG TABLET PO SCH ×2 (08:30→21:54)
[2023-10-07] MEDS ORDERED: CARBOPROST 250 MCG/ML 1 ML AMPULE IM ONE ×2 (10:45→11:00)
[2023-10-07] MEDS ORDERED: HYDROmorphone INJECTION 2 MG/ML VIAL ONE (11:12)
[2023-10-07] MEDS ORDERED: HYDROmorphone INJECTION 2 MG/ML VIAL IV ONE (11:15)
[2023-10-07] MEDS ORDERED: NS 100 ML (IVPB) BAG IV ONE (11:30)
[2023-10-07] MEDS ORDERED: IOHEXOL 350 MG/ML 100 ML (OMNIPAQUE 350) VIAL IV ONE (11:30)
--- NOTE | 2023-10-07 11:41 | Anesthesia-Regional Post-Op ---
Regional Patient Condition Mental Status: Alert, Oriented x3 Circulation: Same as Pre-Op Headache: Absent Sensation: Full Recovery Motor Block: Absent Post Op Complications Complications None Follow Up Care/Instructions Patient Instructions None needed. Anesthesia/Patient Condition Patient is doing well, no complaints, stable vital signs, no apparent adverse anesthesia problems. No complications reported per nursing. JESSE ALLAN CRNA Oct 07, 2023 11:41
--- NOTE | 2023-10-07 12:03 | Diagnostic Imaging Report ---
PROCEDURE: CT abdomen and pelvis with contrast. TECHNIQUE: Multiple contiguous axial images were obtained through the abdomen and pelvis after administration of intravenous contrast. Auto Exposure Controls were utilized during the CT exam to meet ALARA standards for radiation dose reduction. All CT scans use one or more of the following dose optimizing techniques: automated exposure control, MA and/or KvP adjustment based on patient size and exam type or iterative reconstruction. INDICATION: Vaginal delivery one day ago with acute onset of upper abdominal pain. The lung bases are clear. No discrete liver mass is identified. Gallbladder is not well-visualized may be surgically absent. There is no biliary duct dilatation. The pancreas and spleen are unremarkable. No adrenal mass is identified. Kidneys are without calculi or hydronephrosis. The uterus is post gravid. There is some questionable distention of the endometrial canal particularly in the region of the fundus, likely containing blood products from recent delivery. No definite active bleeding or contrast extravasation is identified however. Bowel loops appear nonobstructed. There is moderate stool in the ascending and descending colon. No free fluid is detected. Bladder is decompressed. IMPRESSION: Post-gravid uterus. There is a diffuse heterogeneity throughout the uterus and questionable distention of the endometrial canal likely by blood products from recent delivery. If there is concern for retained products of conception, pelvic ultrasound would be recommended for further evaluation. Dictated by: Dictated on workstation # [id number]
[2023-10-07] MEDS ORDERED: LIDOCAINE PF 2% 5 ML VIAL ONE (12:26)
[2023-10-07] MEDS ORDERED: BUPIVACAINE 0.25% 30 ML VIAL ONE (12:26)
[2023-10-07] MEDS ORDERED: fentaNYL INJECTION 100 MCG/2 ML VIAL ONE (12:26)
[2023-10-07] MEDS ORDERED: SEVOFLURANE (ULTANE) 15 ML INHAL SOLN ONE (12:26)
[2023-10-07] MEDS ORDERED: ONDANSETRON INJECTION 4 MG/2 ML (SDV) ONE (12:26)
[2023-10-07] MEDS ORDERED: MIDAZOLAM INJ 2 MG/2 ML VIAL ONE (12:26)
[2023-10-07] MEDS ORDERED: proPOfol INJECTION 200 MG/20 ML VIAL IV ONE (12:26)
--- NOTE | 2023-10-07 12:26 | Diagnostic Imaging Report ---
PROCEDURE: US PELVIC (NON OB) TECHNIQUE: Multiple real-time grayscale images were obtained over the pelvis in various projections transabdominally. In addition, limited pelvic Doppler was performed. INDICATION: One day status post vaginal delivery. Patient has acute onset of abdominal pain as well as some vaginal bleeding. Uterus is post-gravid measuring 19.0 x 8.2 x 10.8 cm. The endometrium is thickened up to 6.2 cm. There is diffuse endometrial heterogeneity, likely representing blood products. No definite vascularized retained products of conception is identified. Ovaries cannot be visualized due to the uterine enlargement. No free fluid is identified. IMPRESSION: Post gravid uterus with significant endometrial thickening and heterogeneity, likely containing blood products. No vascularized retained products of conception is identified. Dictated by: Dictated on workstation # [id number]
[2023-10-07] MEDS ORDERED: LACTATED RINGERS 1,000 ML 1,000 ML IV PRN (12:30)
--- NOTE | 2023-10-07 12:38 | Progress Note ---
Standard Progress Note Progress Notes/Assess & Plan Date Seen by a Provider: Oct 07, 2023 Time Seen by a Provider: 12:15 Progress/Assessment & Plan RN contacted with acute onset abdominal pain. Patient went up to take shower this AM, and followed by eating breakfast. Approx 1030 she had an episode of bleeding when getting of the shower. This was weighed by RN and approx 250gms. She had progressively worsening abdominal pain and vomited. When I arrived, the uterine fundus was noted to be 2-3 cm above umbilicus. Stat CT/US ordered. CT showed possible ileus, however US inconclusive, no vascular retained POC. However endometrium was 6-8 cm dialated with debris and blood clot. Discussed with patient proceeding with urgent D and C. Risk reviewed. All questions answered. WIll proceed urgently. REGINA PALMER DO Oct 07, 2023 12:38
[2023-10-07] MEDS ORDERED: TRANEXAMIC ACID IV SCH (12:45)
[2023-10-07] MEDS ORDERED: NS IV SCH (12:45)
[2023-10-07] MEDS ORDERED: OXYTOCIN DRIP PRE-MIX 500 ML IV ONE ×2 (13:11→13:17)
[2023-10-07] MEDS ORDERED: NS IV 500 ML 500 ML ONE ×2 (13:15)
[2023-10-07] MEDS ORDERED: BUPIVACAINE 0.5% 30 ML VIAL ONE (13:30)
[2023-10-07] MEDS ORDERED: SUCCINYLCHOLINE INJ 20 MG/1 ML 10 ML VIAL ONE (13:31)
[2023-10-07] MEDS ORDERED: TRANEXAMIC ACID 100 MG/ML 10 ML INJECTION ONE (13:32)
[2023-10-07 13:58] LABS: HEMOGLOBIN 7.4 g/dL (11.5-16.0)
[2023-10-07 14:00] LABS: MEAN PLATELET VOLUME 9.9 fL (9.0-12.2); WHITE BLOOD COUNT 11.9 10^3/uL (4.3-11.0)
[2023-10-07] MEDS ORDERED: OXYTOCIN INJECTION 10 UNIT/ML VIAL INJ ONE (15:01)
[2023-10-07] MEDS ORDERED: metroNIDAZOLE 500MG/100ML IVPB 100 ML IV ONE (15:15)
[2023-10-07] MEDS ORDERED: CLINDAMYCIN 900 MG/50 ML IVPB 50 ML IV ONE (15:15)
[2023-10-07] MEDS ORDERED: NS IV 500 ML 500 ML IV SCH ×2 (15:15)
[2023-10-07] MEDS: METOCLOPRAMIDE INJ 10 MG/2 ML IVP SCH (16:10)
[2023-10-08] MEDS: METOCLOPRAMIDE INJ 10 MG/2 ML IVP SCH ×2 (00:01→11:49)
[2023-10-08] MEDS: IBUPROFEN 600 MG TABLET PO SCH ×2 (00:02→11:49)
[2023-10-08 00:04] LABS: HEMOGLOBIN 8.9 g/dL (11.5-16.0)
--- NOTE | 2023-10-08 01:18 | OPERATIVE REPORT ---
PREOPERATIVE DIAGNOSIS: A 22-year-old female with hemorrhage. POSTOPERATIVE DIAGNOSIS: A 22-year-old female with hemorrhage. PROCEDURE: D and C . SURGEON: German Nixon DO ANESTHESIA: Spinal. ESTIMATED BLOOD LOSS: 1500 mL. URINE OUTPUT: 200 mL drained at the end of the procedure. FLUIDS: 800 mL lactated Ringer solution. FINDINGS: A bulky, enlarged uterus, approximately 23-24 week size, pole of approximately 1 to 1.5 liters of blood clot. SPECIMEN SENT: None. INDICATIONS FOR PROCEDURE: This 22-year-old female is a patient who had delivered last night unremarkably. This morning, she was seen and doing well. Her hemoglobin was stable. She was not having any concerns or issues. The patient reports eating breakfast and then getting up to the shower and started to have bleeding. This bleeding was accompanied with some pain, the bleeding was quantified was approximately 200-300 mL via the weight of the collection of blood per the nurse. I was contacted because her pain continued to be significantly worse. Upon evaluation, the uterine fundus was found to be higher than what it should be at approximately +3 above the umbilicus. A stat CT was ordered to ensure no vascular abnormalities. This was negative and an ultrasound was ordered as well. There was no vascularity going to the endometrium however, the uterus appeared distended approximately 8 to 10 cm in dilation. Due to this, I discussed with the patient and proceed with D and C to clear out what was likely blood clots and potentially retained products. Risk of procedure was discussed with the patient in detail. She was agreeable to proceed. Consent was obtained, the patient was taken to the operating room. OPERATIVE REPORT IN DETAIL: Once in the operating room, spinal analgesia was administered and found to be adequate. She was placed in dorsal lithotomy position, prepped and draped in normal sterile fashion. A timeout was performed. A weighted speculum inserted to the patient's vagina. A right angle retractor was utilized. Cervix was grasped at 12 o'clock position using a long Allis clamp. I then removed the residual blood clot and debris tissue from the intrauterine area using a banjo curette as the uterus was already dilated. This was done multiple multiple passes, collected for approximately 1 to 1.5 liters of blood clot and debris in the surgical pocket. During this time frame, I also have anesthesia administer Hemabate 250 mcg as well as I administered 800 mcg of Cytotec rectally and after doing this, I changed my gloves. IV Pitocin was initiated as well as 30 milliunits in 1000mL of normal saline was given wide open. There was still some residual bleeding noted. Despite this, even though the uterine fundus comes all the way down to -3 -to 4. Due to this, I have a Sho balloon and suction device delivered to the operating room where I sterilely placed as best I can into the uterus. I inflated the occlusion balloon with 100 mL of normal saline and applied to wall suction. Once this was done, bleeding significantly slows down. Ram catheter was placed. The patient tolerated the procedure well and sent to recovery area in stable condition after all instruments were removed pertaining to patient's vagina and a lap and sponge counts were correct x2. I ordered postoperatively due to significant blood loss, antibiotics and due to her penicillin allergy, she was given clindamycin 900 mg and Flagyl 500 mg. Job ID: [id number] DocumentID: [id number] Dictated Date: 10/07/2023 15:15:56 Route Delivery Supervisor Date: 10/08/2023 01:16:00 Dictated By: DO LAINA LERMA
[2023-10-08 03:49] VITALS: BP 122/67
[2023-10-08 06:49] LABS: EOSINOPHILS % (AUTO) 0 % (0-10); MEAN CORPUSCULAR VOLUME 94 fL (80-99)
[2023-10-08 06:51] LABS: BASOPHILS % (AUTO) 0 % (0-10); HEMATOCRIT 25 % (35-52); HEMOGLOBIN 8.4 g/dL (11.5-16.0); LYMPHOCYTES # (AUTO) 1.7 10^3/uL (1.0-4.0); LYMPHOCYTES % (AUTO) 15 % (12-44); MEAN CORPUSCULAR HEMOGLOBIN 31 pg (25-34); MEAN CORPUSCULAR HGB CONC 34 g/dL (32-36); MEAN PLATELET VOLUME 10.7 fL (9.0-12.2); MONOCYTES # (AUTO) 0.5 10^3/uL (0.0-1.0); MONOCYTES % (AUTO) 5 % (0-12); NEUTROPHILS # (AUTO) 8.9 10^3/uL (1.8-7.8); NEUTROPHILS % (AUTO) 79 % (42-75); PLATELET COUNT 104 10^3/uL (130-400); WHITE BLOOD COUNT 11.3 10^3/uL (4.3-11.0)
--- NOTE | 2023-10-08 07:20 | Postpartum Progress Note ---
Note Note Day # 2 Subjective: Patient is without complaints. Ambulating, voiding. Tolerating a regular diet without nausea or vomiting. 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 Pain is well controlled with oral pain medications. Objective: Physical Exam: General - Alert and oriented, no apparent distress Abdomen - Soft, appropriately tender to palpation, non-distended, fundus firm at umbilicus Extremities - no edema, negative Gary's bilaterally Assessment: PPD 2 NVD POD 1 hemorrhage/ D and C Acute blood loss anemia - s/p Plan: Routine care. Encourage breast feeding. Encourage ambulation. Ferrous sulfate supplementation. Plan for discharge today Vitals - Labs Vital Signs - I&O Vital Signs Date Time Temp Pulse Resp B/P (MAP) Pulse Ox O2 Delivery O2 Flow Rate FiO2 10/08/23 03:49 36.0 106 16 122/67 (85) 98 Room Air 10/07/23 23:27 37.0 97 16 105/66 (79) 98 Room Air 10/07/23 23:26 37.0 89 16 105/66 97 Room Air 10/07/23 20:15 36.9 99 18 128/79 99 Room Air 10/07/23 19:59 36.5 100 18 137/76 99 Room Air 10/07/23 18:37 36.7 96 18 119/73 99 Room Air 10/07/23 16:50 36.6 100 18 124/63 98 Room Air 10/07/23 16:28 36.6 89 18 117/63 (81) 98 Room Air 10/07/23 16:25 36.6 89 16 117/63 98 Room Air 10/07/23 14:45 36.4 87 18 129/71 (90) 99 Room Air 10/07/23 14:45 Room Air 10/07/23 14:30 36.1 16 114/72 (86) 98 Room Air 10/07/23 14:30 Room Air 10/07/23 14:20 16 113/73 (86) 97 Room Air 10/07/23 14:15 Room Air 10/07/23 14:10 13 112/69 (83) 98 Room Air 10/07/23 14:00 16 108/59 (75) 100 OxyMask 10.00 10/07/23 14:00 OxyMask 10.00 10/07/23 13:53 18 110/64 (79) 99 OxyMask 10.00 10/07/23 13:43 36.6 16 122/93 (103) 100 OxyMask 10.00 10/07/23 13:43 OxyMask 10.00 10/07/23 11:30 107 130/87 (101) Room Air 10/07/23 11:05 36.0 109 20 127/68 (87) 98 Room Air 10/07/23 10:37 114 20 114/71 (85) 98 Room Air 10/07/23 08:31 37.0 83 20 127/74 (91) 98 Room Air I & O 10/08/23 06:59 Intake Total 385 ml Output Total 650 ml Balance -265 ml Labs Laboratory Tests 10/07/23 13:51: White Blood Count 11.9H, Red Blood Count 2.32L, Hemoglobin 7.4#L, Hematocrit 23L , Mean Corpuscular Volume 99, Mean Corpuscular Hemoglobin 32, Mean Corpuscular Hemoglobin Concent 32, Red Cell Distribution Width 13.1, Platelet Count 117L, Mean Platelet Volume 9.9, Percent Immature Platelet Fraction 5.7 10/07/23 23:55: Hemoglobin 8.9#L, Hematocrit 26L 10/08/23 06:31: White Blood Count 11.3H, Red Blood Count 2.68L, Hemoglobin 8.4L, Hematocrit 25L, Mean Corpuscular Volume 94, Mean Corpuscular Hemoglobin 31, Mean Corpuscular Hemoglobin Concent 34, Red Cell Distribution Width 14.1, Platelet Count 104L, Mean Platelet Volume 10.7, Percent Immature Platelet Fraction 5.4, Immature Granulocyte % (Auto) 1, Neutrophils (%) (Auto) 79H, Lymphocytes (%) (Auto) 15, Monocytes (%) (Auto) 5, Eosinophils (%) (Auto) 0, Basophils (%) (Auto) 0, Neutrophils # (Auto) 8.9H, Lymphocytes # (Auto) 1.7, Monocytes # (Auto) 0.5, Eosinophils # (Auto) 0.0, Basophils # (Auto) 0.0, Immature Granulocyte # (Auto) 0.1 REGINA PALMER DO Oct 08, 2023 07:20
[2023-10-08] MEDS: DOCUSATE SODIUM 100 MG CAPSULE PO SCH (09:00)
[2023-10-08] MEDS ORDERED: BISACODYL 5 MG TABLET PO SCH (09:00)
[2023-10-08 11:45] VITALS: BP 136/84
[2023-10-08] MEDS: LABETALOL 200 MG TABLET PO SCH (11:48)
[2023-10-08] MEDS: FERROUS SULFATE 325 MG (IRON) TABLET PO SCH (11:48)
[2023-10-08] MEDS: PRENATAL VITAMIN TABLET PO SCH (11:55)
[2023-10-08] MEDS: ACETAMINOPHEN 500 MG TABLET PO SCH (11:55)
[2023-10-08] MEDS ORDERED: FLU QUADRIvalent (6 months+) 60 mcg/0.5 ml 2023-2024 (FLUARIX) IM ONE (13:15)
--- NOTE | 2023-10-08 13:41 | Anesthesia-Regional Post-Op ---
Regional Patient Condition Mental Status: Alert, Oriented x3 Circulation: Same as Pre-Op Headache: Absent Sensation: Full Recovery Motor Block: Absent Post Op Complications Complications None Follow Up Care/Instructions Patient Instructions None needed. Anesthesia/Patient Condition Patient is doing well, no complaints, stable vital signs, no apparent adverse anesthesia problems. No complications reported per nursing. DANN ROSSI DO Oct 08, 2023 13:41
== END 2023-10-08 16:10 | disposition home or self-care (01) | DRG 768 ==
LOC: LDRP 06:00
PROVIDERS: ADMIT Obstetrics & Gynecology; ATTEND Obstetrics & Gynecology
PROC: 10E0XZZ Delivery of Products of Conception, External Approach (ICD-10-PCS; principal; 2023-10-06)
PROC: 10907ZC Drainage of Amniotic Fluid, Therapeutic from Products of Conception, Via Natural or Artificial Opening (ICD-10-PCS; 2023-10-06)
PROC: 0W8NXZZ Division of Female Perineum, External Approach (ICD-10-PCS; 2023-10-06)
PROC: 0W3R7ZZ Control Bleeding in Genitourinary Tract, Via Natural or Artificial Opening (ICD-10-PCS; 2023-10-07)
PROC: 10D18ZZ Extraction of Products of Conception, Retained, Via Natural or Artificial Opening Endoscopic (ICD-10-PCS; 2023-10-07)
DX: O14.04 Mild to moderate pre-eclampsia, complicating childbirth (principal); Z37.0 Single live birth; D62 Acute posthemorrhagic anemia; Z3A.38 38 weeks gestation of pregnancy; O90.81 Anemia of the puerperium; O72.1 Other immediate postpartum hemorrhage; Z23 Encounter for immunization
CPT/HCPCS: 36415; 74177; 76856; 85014; 85018; 85025; 85027; 86780; 86850; 86900; 86901; 86920; 90686